=== PATIENT | male | born 1955 | race Caucasian/White ===

== ENCOUNTER 2022-11-02 11:42 | Outpatient (CLI) | payer MEDICARE, SELFPAY ==
[2022-11-02 12:48] LABS: Alanine Aminotransferase 19 U/L (16-63); Albumin Level 3.5 g/dL (3.4-5.0); Alkaline Phosphatase 72 U/L (46-116); Anion Gap 7 mmol/L (8-16); Aspartate Amino Transferase 17 U/L (15-37); Bilirubin,Total 0.6 mg/dL (0.00-1.00); Blood Urea Nitrogen 13 mg/dL (7-18); Calcium 8.6 mg/dL (8.5-10.1); Carbon Dioxide 31 mmol/L (21-32); Chloride 106 mmol/L (98-108); Estimated Glomerular Filt Rate > 60; Glucose 108 mg/dL (70-99); Osmolality Calculated 299 mOsm/kg (285-295); Potassium 4.1 mmol/L (3.5-5.1); Prostate Specific Antigen 5.6 ng/mL (< OR = 4.0); Sodium 144 mmol/L (136-145); Total Protein 6.5 g/dL (6.4-8.2)
== END 2022-11-02 11:43 | disposition home or self-care (01) ==
PROVIDERS: PCP Internal Medicine; Visit Provider Urology
DX: N42.9 Disorder of prostate, unspecified (principal)
CPT/HCPCS: 36415; 80053; 84153

== ENCOUNTER 2023-02-24 12:14 | Outpatient (CLI) | payer MEDICARE, SELFPAY ==
--- NOTE | ~2023-02-24 | XR_ITS ---
EXAMINATION: XR chest 2V 02/24/2023 12:36 INDICATION: Dyspnea for one year PROCEDURE: 2 view chest COMPARISON: No prior studies for comparison. FINDINGS: The lungs are clear. The cardiomediastinal silhouette is within normal limits. There are no pleural effusions. There is no pneumothorax suspected. IMPRESSION: 1: NO ACUTE CARDIOPULMONARY DISEASE. Reviewed, dictated and finalized at location L.
[2023-02-24 12:29] LABS: Basophils Absolute Auto 0.03 K/mm3 (0.00-0.10); Basophils Percent Auto 0.4 % (0.0-1.0); Eosinophils Absolute Auto 0.18 K/mm3 (0.02-0.50); Eosinophils Percent Auto 2.2 % (1.0-6.0); Hematocrit 44.6 % (37.0-46.0); Hemoglobin 14.6 g/dL (12.4-15.3); Immature Granulocyte Absolute 0.03 K/mm3 (0.00-0.00); Immature Granulocyte Percent A 0.4 % (0.0-0.0); Lymphocytes Absolute Auto 1.76 K/mm3 (1.10-4.50); Mean Corpuscular HGB Conc 32.7 g/dL (32.0-36.0); Mean Corpuscular Hemoglobin 29.6 pg (27.0-31.0); Mean Corpuscular Volume 90.3 fL (78.0-102.0); Mean Platelet Volume 9.1 fl (8.7-11.0); Monocytes Absolute Auto 0.91 K/mm3 (0.10-0.90); Monocytes Percent Auto 10.9 % (2.0-11.0); Neutrophils Absolute Auto 5.5 K/mm3 (1.7-7.2); Neutrophils Percent Auto 65.1 % (50.0-70.0); Platelet Count Result 264 K/mm3 (150-420); Red Blood Count 4.94 M/mm3 (4.70-6.10); Red Cell Distribution Width 12.8 % (11.6-14.4); White Blood Count 8.4 K/mm3 (4.8-10.8)
--- NOTE | 2023-02-24 12:31 | ECG_ITS ---
Measurements Intervals [employer] Rate: 78 P: 75 UT: 177 QRS: 79 QRSD: 97 T: 71 QT: 374 QTc: 429 Interpretive Statements SINUS RHYTHM WITH SINUS ARRHYTHMIA INCOMPLETE RIGHT BUNDLE BRANCH BLOCK DELAYED PRECORDIAL R/S TRANSITION BASELINE ARTIFACT- II, III, AVR, AVL, AVF BORDERLINE ECG NO PREVIOUS ECG AVAILABLE FOR COMPARISON Electronically Signed On 02-24-2023 13:25:47 CDT by Ernesto Zayas D.O.
[2023-02-24 13:07] LABS: Alanine Aminotransferase 22 U/L (16-63); Albumin Level 3.9 g/dL (3.4-5.0); Alkaline Phosphatase 82 U/L (46-116); Anion Gap 7 mmol/L (8-16); Aspartate Amino Transferase 17 U/L (15-37); Bilirubin,Total 0.8 mg/dL (0.00-1.00); Blood Urea Nitrogen 13 mg/dL (7-18); Calcium 9.4 mg/dL (8.5-10.1); Carbon Dioxide 33 mmol/L (21-32); Chloride 99 mmol/L (98-108); Estimated Glomerular Filt Rate > 60; Glucose 84 mg/dL (70-99); NT Pro B Type Natriuretic Pept 38 pg/mL (0-125); Osmolality Calculated 287 mOsm/kg (285-295); Potassium 4.3 mmol/L (3.5-5.1); Sodium 139 mmol/L (136-145); Thyroid Stimulating Hormone 4.34 uIU/mL (0.36-3.74); Total Protein 7.7 g/dL (6.4-8.2)
== END 2023-02-24 12:15 | disposition home or self-care (01) ==
LOC: CHSIMG 12:16
PROVIDERS: PCP Internal Medicine; Visit Provider Internal Medicine
DX: R06.00 Dyspnea, unspecified (principal); E03.9 Hypothyroidism, unspecified; I45.19 Other right bundle-branch block
CPT/HCPCS: 36415; 71046; 80053; 83880; 84443; 85025; 93005

== ENCOUNTER 2023-03-11 12:39 | Outpatient (CLI) | payer MEDICARE, SELFPAY ==
--- NOTE | 2023-03-11 12:47 | ECHO_ITS ---
Patient Info Name: Chencho Naranjo Age: 67 years : 1955 Gender: Male Ht: 71 in Wt: 204 lbs BSA: 2.17 m2 HR: 70 bpm BP: 130 / 75 mmHg Heart Rhythm: Sinus Rhythm Technical Quality: Fair Exam Date: 03/11/2023 1:24 PM Exam Location: [facility] Patient Status: Outpatient Admit Date: 03/11/2023 Staff Ordering Physician: Franko Hand MD Field Operations Manager: Kayla Rouse RDCS Attending Provider: Franko Hand MD Exam Type: CA echo doppler color flow Study Info Indications R94.31 - Abnormal electrocardiogram ECG EKG Complete two-dimensional, color flow and Doppler transthoracic echocardiogram is performed. Summary 1. Complete two-dimensional, color flow and Doppler transthoracic echocardiogram is performed. 2. Left ventricular chamber dimension is normal. 3. Left ventricular systolic function is normal, estimated at 60-65%. 4. The left ventricular diastolic function is normal. 5. There is trace tricuspid valve regurgitation. 6. No pulmonary hypertension, estimated pulmonary arterial systolic pressure is 20 mmHg. Left Ventricle Tissue doppler E/e' is not performed. Left ventricular chamber dimension is normal. Left ventricular systolic function is normal, estimated at 60-65%. The left ventricular diastolic function is normal. Right Ventricle Right ventricular systolic function is normal and with normal TAPSE 2.9 cm. Right ventricular chamber dimension is normal. Left Atria Left atrial chamber dimension is normal. Right Atria Right atrial chamber dimension is normal. Aortic Valve The aortic valve is trileaflet. There is no aortic valve stenosis. There is no aortic valve regurgitation. Pulmonic Valve There is no pulmonic regurgitation. Mitral Valve There is no mitral valve stenosis. There is no mitral valve regurgitation. Tricuspid Valve There is trace tricuspid valve regurgitation. No pulmonary hypertension, estimated pulmonary arterial systolic pressure is 20 mmHg. Pericardium/Pleural There is no pericardial effusion. Inferior Vena Cava Normal inferior vena cava with >50% collapse upon inspiration consistent with normal right atrial pressure, 5 mmHg. Aorta The aortic root size at the sinus of Valsalva is normal. Left Ventricular Outflow Tract Name Value Normal LVOT 2D LVOT Diameter 2.2 cm LVOT Doppler LVOT Peak Velocity 86 cm/s LVOT Peak Gradient 3 mmHg LVOT Mean Gradient 1 mmHg LVOT VTI 17 cm LVOT VTI/AV VTI Ratio 0.7 LVOT Stroke Volume 62 ml Pulmonic Valve Name Value Normal RVOT Doppler RVOT Peak Gradient 1 mmHg PV Doppler PV Peak Velocity 90 cm/s PV Peak Gradient 3 mmHg Mitral Valve
== END 2023-03-11 12:40 | disposition home or self-care (01) ==
LOC: CHSIMG 12:41
PROVIDERS: PCP Internal Medicine; Visit Provider Internal Medicine
DX: R94.31 Abnormal electrocardiogram [ECG] [EKG] (principal)
CPT/HCPCS: 93306

== ENCOUNTER 2023-03-18 09:15 | Outpatient (CLI) | payer MEDICARE, SELFPAY | END 2023-03-18 09:16 | disposition home or self-care (01) | LOC: CHSCARD 09:17 | PROVIDERS: PCP Internal Medicine; Visit Provider Internal Medicine | DX: R06.00 Dyspnea, unspecified (principal); E03.9 Hypothyroidism, unspecified | CPT/HCPCS: 94060; 94726; 94729 ==

== ENCOUNTER 2023-03-29 10:12 | Outpatient (CLI) | payer MEDICARE, SELFPAY ==
[2023-03-29 11:20] LABS: Alanine Aminotransferase 23 U/L (16-63); Albumin Level 3.9 g/dL (3.4-5.0); Alkaline Phosphatase 79 U/L (46-116); Anion Gap 9 mmol/L (8-16); Aspartate Amino Transferase 18 U/L (15-37); Bilirubin,Total 0.7 mg/dL (0.00-1.00); Blood Urea Nitrogen 14 mg/dL (7-18); Calcium 9.4 mg/dL (8.5-10.1); Carbon Dioxide 30 mmol/L (21-32); Chloride 100 mmol/L (98-108); Estimated Glomerular Filt Rate > 60; Glucose 97 mg/dL (70-99); Osmolality Calculated 288 mOsm/kg (285-295); Potassium 4.1 mmol/L (3.5-5.1); Prostate Specific Antigen 3.3 ng/mL (< OR = 4.0); Sodium 139 mmol/L (136-145); Total Protein 7.4 g/dL (6.4-8.2)
== END 2023-03-29 10:13 | disposition home or self-care (01) ==
LOC: CHSLAB 10:15
PROVIDERS: PCP Internal Medicine; Visit Provider Urology
DX: N42.9 Disorder of prostate, unspecified (principal)
CPT/HCPCS: 36415; 80053; 84153

== ENCOUNTER 2023-09-21 10:53 | Outpatient (CLI) | payer MEDICARE, SELFPAY ==
[2023-09-21 12:07] LABS: Alanine Aminotransferase 29 U/L (16-63); Albumin Level 3.8 g/dL (3.4-5.0); Alkaline Phosphatase 71 U/L (46-116); Anion Gap 4 mmol/L (8-16); Aspartate Amino Transferase 20 U/L (15-37); Bilirubin,Total 0.6 mg/dL (0.00-1.00); Blood Urea Nitrogen 12 mg/dL (7-18); Calcium 9.1 mg/dL (8.5-10.1); Carbon Dioxide 32 mmol/L (21-32); Chloride 103 mmol/L (98-108); Estimated Glomerular Filt Rate > 60; Glucose 88 mg/dL (70-99); Osmolality Calculated 286 mOsm/kg (285-295); Prostate Specific Antigen 4.1 ng/mL (< OR = 4.0); Sodium 139 mmol/L (136-145); Total Protein 7.1 g/dL (6.4-8.2)
== END 2023-09-21 10:54 | disposition home or self-care (01) ==
LOC: CHSLAB 11:02
PROVIDERS: PCP Internal Medicine; Visit Provider Urology
DX: N42.9 Disorder of prostate, unspecified (principal); N40.1 Benign prostatic hyperplasia with lower urinary tract symptoms
CPT/HCPCS: 36415; 80053; 84153

== ENCOUNTER 2024-05-02 14:16 | Outpatient (CLI) | payer MEDICARE, SELFPAY ==
[2024-05-02 15:32] LABS: Alanine Aminotransferase 20 U/L (16-63); Albumin Level 3.5 g/dL (3.4-5.0); Alkaline Phosphatase 71 U/L (46-116); Anion Gap 5 mmol/L (4-12); Aspartate Amino Transferase 60 U/L (15-37); Bilirubin,Total 0.6 mg/dL (0.00-1.00); Blood Urea Nitrogen 13 mg/dL (7-18); Calcium 8.8 mg/dL (8.5-10.1); Carbon Dioxide 33 mmol/L (21-32); Chloride 102 mmol/L (98-108); Estimated Glomerular Filt Rate > 60; Glucose 99 mg/dL (70-99); Osmolality Calculated 290 mOsm/kg (285-295); Potassium 3.1 mmol/L (3.5-5.1); Sodium 140 mmol/L (136-145)
[2024-05-02 15:57] LABS: Prostate Specific Antigen < 0.1 ng/mL (< OR = 4.0)
== END 2024-05-02 14:17 | disposition home or self-care (01) ==
PROVIDERS: PCP Internal Medicine; Visit Provider Urology
DX: N42.9 Disorder of prostate, unspecified (principal); N40.1 Benign prostatic hyperplasia with lower urinary tract symptoms; Z12.5 Encounter for screening for malignant neoplasm of prostate
CPT/HCPCS: 36415; 80053; 84153; G0103

== ENCOUNTER 2024-06-08 09:32 | Outpatient (CLI) | payer MEDICARE, SELFPAY ==
--- NOTE | ~2024-06-08 | CT_ITS ---
CT Scan of the Chest without Contrast: Clinical Indication: Lung cancer screening, nicotine dependence Technique: Contiguous sections were acquired throughout the chest without intravenous contrast. Dose reduction technique was used on this scan by utilizing automated exposure control and iterative recon struction technique. The dose-length product (DLP) was 235.63 mGy-cm. Findings: There is no evidence of any significant mediastinal, hilar or axillary lymphadenopathy. The mediastin al soft tissues appear normal. There is no evidence of pleural or pericardial effusion. 3 mm right lower lobe pulmonary nodule present. There is left basilar scarring. Images through the upper abdomen reveal no abnormalities. Impression: Lung RADS 2: Benign appearance. 12 month follow-up screening CT advised. Reviewed, dictated and finalized at location . Impression: Lung RADS 2: Benign appearance. 12 month follow-up screening CT advised.
== END 2024-06-08 09:33 | disposition home or self-care (01) ==
PROVIDERS: PCP Internal Medicine; Visit Provider Internal Medicine
DX: J44.9 Chronic obstructive pulmonary disease, unspecified (principal); Z12.2 Encounter for screening for malignant neoplasm of respiratory organs; Z87.891 Personal history of nicotine dependence
CPT/HCPCS: 71271; 94060; 94726; 94729

== ENCOUNTER 2024-10-18 09:19 | Outpatient (CLI) | payer MEDICARE, SELFPAY ==
[2024-10-18 09:46] LABS: Hematocrit 43.4 % (37.0-46.0); Hemoglobin 14.3 g/dL (12.4-15.3); Mean Corpuscular HGB Conc 32.9 g/dL (32-36); Mean Corpuscular Hemoglobin 28.9 pg (27.0-31.0); Mean Corpuscular Volume 87.7 fL (78.0-102.0); Mean Platelet Volume 9.5 fl (8.7-11.0); Platelet Count Result 241 K/mm3 (150-420); Red Blood Count 4.95 M/mm3 (4.70-6.10); Red Cell Distribution Width 13.4 % (11.6-14.4); White Blood Count 8.8 K/mm3 (4.8-10.8)
[2024-10-18 09:55] LABS: Add Urine Microscopic? NO; Appearance Urine Clear (Clear); Bilirubin Urine Negative (Negative); Blood Urine Negative (Negative); Color Urine Light Yellow (Yellow); Glucose Urine UA Negative (Negative); Ketones Urine Negative (Negative); Leukocyte Esterase Ur Negative (Negative); Nitrate Urine Negative (Negative); Protein Urine Negative (Negative); Urobilinogen Urine 0.2 mg/dL (0.2-1.0); pH Urine 5.5 (5.0-8.0)
[2024-10-18 10:26] LABS: Alanine Aminotransferase 31 U/L (16-63); Albumin Level 3.7 g/dL (3.4-5.0); Alkaline Phosphatase 93 U/L (46-116); Anion Gap 7 mmol/L (4-12); Aspartate Amino Transferase 15 U/L (15-37); Bilirubin,Total 0.7 mg/dL (0.00-1.00); Blood Urea Nitrogen 9 mg/dL (7-18); CRP 0.7 mg/dL (0.0-0.9); Calcium 9.1 mg/dL (8.5-10.1); Carbon Dioxide 28 mmol/L (21-32); Chloride 106 mmol/L (98-108); Cholesterol 168 mg/dL (0-200); Estimated Glomerular Filt Rate > 60; Glucose 107 mg/dL (70-99); HDL Direct 48 mg/dL (40-60); LDL Cholesterol Calculated 99 mg/dL (<130); Osmolality Calculated 290 mOsm/kg (285-295); Potassium 4.4 mmol/L (3.5-5.1); Prostate Specific Antigen 2.2 ng/mL (< OR = 4.0); Sodium 141 mmol/L (136-145); Thyroid Stimulating Hormone 2.34 uIU/mL (0.36-3.74); Total Protein 6.7 g/dL (6.4-8.2); Triglycerides 107 mg/dL (0-150)
== END 2024-10-18 09:20 | disposition home or self-care (01) ==
LOC: CHSLAB 09:21
PROVIDERS: PCP Internal Medicine; Visit Provider Internal Medicine
DX: I10 Essential (primary) hypertension (principal); E78.5 Hyperlipidemia, unspecified; J44.9 Chronic obstructive pulmonary disease, unspecified; R97.20 Elevated prostate specific antigen [PSA]
CPT/HCPCS: 36415; 80053; 80061; 81003; 84153; 84443; 85027; 86140

== ENCOUNTER 2024-10-31 10:57 | Outpatient (CLI) | payer MEDICARE, SELFPAY ==
[2024-10-31 11:59] LABS: Alanine Aminotransferase 33 U/L (16-63); Alkaline Phosphatase 97 U/L (46-116); Anion Gap 9 mmol/L (4-12); Aspartate Amino Transferase 21 U/L (15-37); Bilirubin,Total 0.8 mg/dL (0.00-1.00); Blood Urea Nitrogen 11 mg/dL (7-18); Calcium 9.3 mg/dL (8.5-10.1); Carbon Dioxide 30 mmol/L (21-32); Chloride 105 mmol/L (98-108); Estimated Glomerular Filt Rate > 60; Glucose 98 mg/dL (70-99); Osmolality Calculated 297 mOsm/kg (285-295); Potassium 4.1 mmol/L (3.5-5.1); Prostate Specific Antigen 2.1 ng/mL (< OR = 4.0); Sodium 144 mmol/L (136-145); Total Protein 6.9 g/dL (6.4-8.2)
--- OUTSIDE RECORDS SUMMARY | 2024-11-01 23:44 | XMS_ITS | Encounter Summary ---
Author Organization [facility] Address [address] [place] [address] Phone Care Team Providers Care Research And Development Tester Name Role Phone Serge Martinez MD Primary Care Provider [phone] Janett Mccormick APN, [facility] Unavailable Bernie Downey MD Unavailable Ranjit Yadav MD Unavailable [phone] Reason for Visit * Reason Comments Medication Refill Encounter Details Date Type Department Care Team (Late st Contact Info) Description 10/06/2022 Refill [facility] [address] [place] [id number] Nino Martin MD [address] [address] Medication Refill Social History Tobacco Use Types Packs/Day Years Used Date Smoking Tobacco: Former Cigarettes 1 48 1 11/12/1970 - 01/12/2019 Smokeless Tobacco: Current Chew Alcohol Use Standard Drinks/Week Comments Not Currently 0 (1 standard drink = 0.6 oz pur e alcohol) PHQ-2 Answer Date Recorded Total Score - Questions 1-9 0 03/0 05/2022 Sexually Active Control Partners Comments Not Currently Sex and Gender Information Value Date Recorded Sex Assigned at Not on file Legal Sex Male 11:37 PM CDT Gender Identity Not on file Sexual Orientation Not on file 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 RIPTIVE CATALOG LIBRARIAN documented in this encounter Plan of Treatment Not on file documented as of this encounter Visit Diagnoses Not on filedocumented in this encounter Additional Health Concerns Assessment Noted Time PHQ-9 Depression Total Score: 0 11/25/19 21 9:00 AM DESCRIPTIVE CATALOG LIBRARIAN documented as of this encounter Care Teams Research And Development Tester Relationship Specialty Start Date End Date Serge Martinez MD [address] [address] PCP - General Internal Medicine 09/12/15 02/14/23 Janett Mccormick, NON LINEAR EDITOR, DIMENSION WAREHOUSE SUPERVISOR [address] [place] [address] Nurse Practitioner Urology 05/14/16 Bernie Downey MD [address] [place] [address] Consulting Physician Urology 10/13/17 Ranjit Yadav MD [address] [place] [address] Consulting Physician Rheumatology 12/06/17 documented as of this encounter
--- OUTSIDE RECORDS SUMMARY | 2024-11-01 23:44 | XMS_ITS | Referral Summary ---
Author Organization [facility] Address [address] [place] [address] Care Team Providers Care Face Worker Name Role Phone Serge Martinez MD Primary Care Provider + Allergies No known active allergies Medications albuterol HFA (PROVENTIL HFA,VENTOLIN HFA) 90 mcg/actuation inhaler Inhale. Active tamsulosin (FLOMAX) 0.4 mg extended release capsule Take 0.4 mg by mouth nightly. 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 Aftercare following surgery 01/17/2018 Resolved Problems Problem Noted Date Diagnosed Date Resolved Date Carpal tunnel syndrome on right 12/15/2017 01/17/2018 Overview (12/15/2017): Added automatically from request for surgery [id number] Carpal tunnel syndrome, right 12/13/2017 01/17/2018 Immunizations Name Administration Dates Next Due Influenza, Quadrivalent, Spl it, Preservative Free, Intramuscular 06/27/2019 Influenza, Trivalent, Cell C ulture-based MDCK, Preservative Free, Antibiotic Free, Intramuscular 07/20/2020 Influenza, Trivalent, IM (MDV) 07/13/2017 Pfizer SARS-CoV-2 Monovalent Vaccination (12+ Yrs) PURPLE 02/24/2021 Pneumococcal Polysaccharide PPV23 12/06/2017 Tdap 08/08/2015,12/03/2014 ZOSTER Recombinant 10/08/2020,08/04/2020 Social History Tobacco Use Types Packs/Day Years Used Date Smoking Tobacco: Every Day Cigarettes 0.5 18 Smokeless Tobacco: Current Tobacco Cessation:Ready to Q uit: Yes; Counseling Given: Yes Alcohol Use Standard Drinks/Week Comments No 0 (1 standard drink = 0.6 oz pur e alcohol) Sex and Gender Information Value Date Recorded Sex Assigned at Not on file 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 Gender Identity Not on file Sexual Orientation Not on file Last Filed Vital Signs Vital Sign Reading Time Taken Comments Blood Pressure 142/60 03/26/2021 3:24 PM CDT Pulse 76 03/26/2021 3:24 PM CDT Temperature 36.7 ??C (98.1 ??F) 03/26/2021 3:24 PM CD T Respiratory Rate 16 03/26/2021 3:24 PM CDT Oxygen Saturation 98% 03/26/2021 3:24 PM CDT Inhaled Oxygen Concentration - - Weight 86.4 kg (190 lb 8 oz) 03/26/2021 8:03 AM CDT Height 180.3 cm (5' 11 ) 03/26/2021 8:03 AM CDT Body Mass Index 26.57 03/26/2021 8:03 AM CDT Plan of Treatment Not on file Insurance [facility] CHOICE PLUS MEDICARE MEDICARE [facility] CHOICE PLUS MEDICARE SOLUTIONS [facility] CHOICE PLUS TRANSPLANT [employer] [facility] Care Teams Face Worker Relationship Specialty Start Date End Date Serge Martinez MD PCP - General Internal Medicine 12/09/17
--- OUTSIDE RECORDS SUMMARY | 2024-11-01 23:44 | XMS_ITS | Clinical Summary ---
Author Organization [facility] Medical Office Building [facility] Address [address] [place] [address] Care Team Providers Care Rubber Tubing Splicer Name Role Phone Serge Martinez MD Primary [...] (12/15/2017): Added automatically from request for surgery [id number] Carpal tunnel syndrome, right 12/13/2017 01/17/2018 Immunizations Name Administration Dates Next Due Influenza, Quadrivalent, Spl it, Preservative Free, Intramuscular 06/27/2019 Influenza, Trivalent, Cell C ulture-based MDCK, Preservative Free, Antibiotic Free, Intramuscular 07/20/2020 Influenza, Trivalent, IM (MDV) 07/13/2017 Pfizer SARS-CoV-2 Monovalent Vaccination (12+ Yrs) PURPLE 02/24/2021 Pneumococcal Polysaccharide PPV23 12/06/2017 Tdap 08/08/2015,12/03/2014 ZOSTER Recombinant 10/08/2020,08/04/2020 Surgical History Surgery Date Site/Laterality Comments SPINE SURGERY Ruptured Disc Repair TONSILLECTOMY AND ADENOIDECTOMY Medical History Medical History Date Comments Hypertension Rheumatoid arthritis (HCC) Cancer (CMS/HCC) (HCC) Prostate Family History Medical History Relation Name Comments Heart disease Other Relation Name Status Comments Other Social History Tobacco Use Types Packs/Day Years Used Date Smoking Tobacco: Every Day Cigarettes 0.5 18 Smokeless Tobacco: Current Tobacco Cessation:Ready to Q uit: Yes; Counseling Given: Yes Alcohol Use Standard Drinks/Week Comments No 0 (1 standard drink = 0.6 oz pur e alcohol) Sex and Gender Information Value Date Recorded Sex Assigned at Not on file 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 Gender Identity Not on file Sexual Orientation Not on file Obstetrics History Last Filed Vital Signs Vital Sign Reading [...] 03/26/2021 8:03 AM CDT Plan of Treatment Health Maintenance Due Date Last Done Comments Colon Cancer Screening-Colonoscopy 1955 Depression Screening 1955 Hepatitis C Screening 1955 Prostate Cancer Screening-PSA 1955 Hepatitis B Screening 1973 Pneumococcal vaccine 65+ (2 of 2 - PCV) 12/06/2018 12/06/2017 Abdominal Aortic Aneurysm (A AA) Screen 2020 Well Visit 65+ 2020 Fall Risk Assessment 03/22/2022 03/22/2021 Covid-19 Vaccine (2023-2 5 season) 2024 10/23/2021, 03/17/2021, 02/24/2021 Influenza Vaccine (#1) 2024 , 07/20/2020, 06/27/2019, Additional history exists DTaP/Tdap/Td Vaccine (3 - Td or Tdap) 08/08/2025 08/08/2015, 12/03/2014 Zoster Vaccine Completed 10/08/2020, 08/04/2020 Insurance [facility] CHOICE PLUS MEDICARE MEDICARE [facility] CHOICE PLUS MEDICARE SOLUTIONS [facility] CHOICE PLUS TRANSPLANT [facility] Care Teams Rubber Tubing Splicer Relationship Specialty Start Date End Date Serge Martinez MD PCP - General Internal Medicine 12/09/17
--- OUTSIDE RECORDS SUMMARY | 2024-11-01 23:44 | XMS_ITS | Clinical Summary ---
Author Organization [facility] Address [address] [place] [address] Phone Care Team Providers Care Garden Implement Mechanic Name Role Phone Unavailable Primary Care Provider Unavailabl e Allergies No known active allergies Medications tamsulosin (FLOMAX) 0.4 mg capsule 05/05/2021 Active lisinopril-hydro CHLOROthiazide (ZESTORETIC) 20-25 mg tablet 06/17/2021 Act ace finasteride (PROSCAR) 5 mg tabletIndication s:Benign prostatic hyperplasia with nocturia TAKE 1 TABLET BY MOUTH EVERY DAY 30 Tablet 3 08/04/2022 Active Active Problems Problem Noted Date Diagnosed Date Elevated PSA 07/14/2021 Social History Tobacco Use Types Packs/Day Years Used Date Smoking Tobacco: Never Smokeless Tobacco: Never Tobacco Cessation:Counseling Given: No Sex and Gender Information Value Date Recorded Sex Assigned at Not on file Legal Sex Male 2:50 PM CDT Gender Identity Not on file Sexual Orientation Not on file Last Filed Vital Signs Vital Sign Reading Time Taken Comments Blood Pressure - - Pulse - - Temperature 36.7 ??C (98 ??F) 07/14/2021 9:16 AM CDT Respiratory Rate 17 08/06/2022 10:37 AM CDT Oxygen Saturation - - Inhaled Oxygen Concentration - - Weight 90.7 kg (200 lb) 08/06/2022 10:37 AM CDT Height 182.9 cm (6') 08/06/2022 10:37 AM CDT Body Mass Index 27.12 08/06/2022 10:37 AM CDT Plan of Treatment Health Maintenance Due Date Last Done Comments COLORECTAL SCREENING 2000 Colorectal Cancer Screening 2000 FIT-DNA Q 3 years 2000 FIT/FOBT Q 1 year 2000 Flex Sig/CT Colonography Q 5 years 2000 RSV VACCINE (60+ or ) (1 - Risk 60-74 years 1-dose series) 2015 PNEUMOCOCCAL VACCINE 65+ YEA RS (2 of 2 - PCV) 12/06/2018 12/06/2017 INFLUENZA VACCINE (#1) 2024 1, 07/20/2020, 07/20/2020, Additional history exists COVID-19 Vaccine (2 - 2023-2 5 season) 2024 02/24/2021 DTAP/TDAP/TD VACCINES (3 - T d or Tdap) 08/08/2025 08/08/2015, 12/03/2014 ZOSTER VACCINE Completed 10/08/2020, 08/04/2020 Insurance [place] [address]
--- OUTSIDE RECORDS SUMMARY | 2024-11-01 23:44 | XMS_ITS | Clinical Summary ---
Author Organization [facility] Address [address] [place] [address] Care Team Providers Care Piece Dyeing Machine Tender Name Role Phone Serge Martinez MD Primary Care Provider [phone] Serge Martinez MD Unavailable [phone] Source Comments [facility],non-owned Affiliates and Associated Physician Practices is amultiple site organization consisting of ambulatory clinics and hospital sitesin [place], [place] and [place]. This disclosure is being madepursuant to the Care Everywhere program and may not contain all information available regarding this patient. Last updated 18.[facility] Allergies No known active allergies Medications * Be aware that medications may not be up to date on this document. Alwaysverify current medications with the patient. Medication Sig Dispensed Refills Start Date End Date Status FINASTERIDE PO Active TAMSULOSIN HCL PO Active folic acid (FOLVITE) 1 MG tablet 11/02/2017 Active predniSONE (DELTASONE) 2.5 MG tablet Take 7.5 mg by mouth 05/16/2018 Active methotrexate 2.5 MG tablet Take 20 mg by mouth 11/02/2017 Active leflunomide (ARAVA) 10 MG tablet 05/16/2018 Active lisinopril-hydroCHLO ROthiazide (PRINZIDE; ZESTORETIC) 20-25 MG tablet 12/05/2017 Active albuterol HFA (PROVENTIL;VENTOLIN; PROAIR) 108 (90 BASE) MCG/ACT inhalerIndications:A cute bronchitis, unspecified organism Inhale 2 puffs by mouth every 4 hours as needed for Shortness of Breath, Wheezing or Cough 1 Inhaler 10/27/2018 Active benzonatate (TESSALON) 100 MG capsuleIndications:A cute bronchitis, unspecified organism Take 1 capsule by mouth 3 times daily as needed for Cough 15 capsule 10/27/2018 Active predniSONE (DELTASONE) 20 MG tabletIndications:Ac ute mountain sinusitis, recurrence not specified, unspecified location Take 1 tablet by mouth 2 times daily 14 tablet 03/20/2019 Active albuterol HFA (VENTOLIN HFA) 108 (90 Base) MCG/ACT inhalerIndications:A cute bronchitis, unspecified organism Inhale 2 puffs by mouth every 6 hours as needed 1 Inhaler 1 03/20/2019 Active Active Problems Problem Noted Date Diagnosed Date Hyperlipidemia 03/20/2019 Peyronie disease 11/19/2016 RA (rheumatoid arthritis) 10/10/2016 Prostate cancer 09/29/2016 Enlarged prostate 09/29/2016 Hyperplasia of prostate with lower urinary tract symptoms (LUTS) 05/14/2016 Social History Tobacco Use Types Packs/Day Years Used Date Smoking Tobacco: Former Cigarettes Smokeless Tobacco: Never Tobacco Cessation:Ready to Q uit: No; Counseling Given: Yes Sex and Gender Information Value Date Recorded Sex Assigned at Not on file Gender Identity Not on file Sexual Orientation Not on file Last Filed Vital Signs Vital Sign Reading Time Taken Comments Blood Pressure 126/80 03/20/2019 8:59 AM CDT Pulse 85 03/20/2019 8:59 AM CDT Temperature 36.7 ??C (98.1 ??F) 03/20/2019 8:59 AM CD T Respiratory Rate 17 03/20/2019 8:59 AM CDT Oxygen Saturation 93% 03/20/2019 8:59 AM CDT Inhaled Oxygen Concentration - - Weight 90.7 kg (200 lb) 03/20/2019 8:59 AM CDT Height 180.3 cm (5' 11 ) 03/20/2019 8:59 AM CDT Body Mass Index 27.89 03/20/2019 8:59 AM CDT Plan of Treatment Health Maintenance Due Date Last Done Comments COLOGUARD (AGES 45-75) - COL ON CA SCREENING 1955 COLON MONITORING 1955 COLONOSCOPY - COLON CA SCREENING 1955 CT COLONOGRAPHY - COLON CA SCREENING 1955 Colorectal Cancer Screening 1955 FIT - COLON CA SCREENING 1955 FLEX SIG - COLON CA SCREENING 1955 LIPID TESTING 1955 MEDICARE AWV ? 12 MONTHS 1955 HEPATITIS C SCREENING 10/30/1973 DTAP/TDAP/TD VACCINES (1 - Tdap) 1974 PNEUMOCOCCAL VACCINE 50+ (1 of 1 - PCV) 2005 ZOSTER VACCINE (1 of 2) 2005 SCREENING FOR DIABETES 10/27/2018 AAA SCREENING 2020 COVID-19 VACCINE (1 - 2023-2 5 season) 2024 INFLUENZA VACCINE (#1) 2024 , 07/13/2017 DEPRESSION SCREENING 10/10/2024 Respiratory Syncytial Virus (RSV) Vaccine Pt: or over 60 yrs (1 - 1-dose 75+ series) 2030 HEPATITIS B VACCINE Aged Out No longe r eligible based on patient's age to complete this topic HIB VACCINE Aged Out No longer eligi ble based on patient's age to complete this topic HPV VACCINE Aged Out No longer eligi ble based on patient's age to complete this topic MENINGOCOCCAL (Group B) VACCINE Aged Out No longer eligible b ased on patient's age to complete this topic MENINGOCOCCAL VACCINE Aged Out No julieta jacob eligible based on patient's age to complete this topic Care Teams Piece Dyeing Machine Tender Relationship Specialty Start Date End Date Serge Martinez MD PCP - General 05/24/18 Serge Martinez MD Internal Medicine 05/24/18
--- OUTSIDE RECORDS SUMMARY | 2024-11-01 23:44 | XMS_ITS | Data Portability ---
Author Organization [facility], Main Office Address [address] [place] [address] Assessment Encounter Date Assessment Date Assessment LastModified by Organization Details LastModified Time 10/08/2024 10/08/2024 I performed this visit using real time two way telehealth tools, including Doximity video visits between my location and the patient's home. Prior to initiating the services, I obtained the patient's informed verbal consent to perform this visit using the telehealth tools and answered all the patient's questions. 68yo male presents via TM for wgt loss management [email or web address] Not available 10/08/2024 16:41:20 Plan of Treatment Reminders Order Date Submit Date Provider Last Modified By Organization Details Last Modified Time Details Appointments None recorded. Lab None recorded. Referral nutritioni st/dietiti an referral 2023 024 [email or web address] Not available 23:46:28 Procedures None recorded. Surgeries None recorded. Imaging None recorded. Medication Orders None recorded. Patient TargetsNo targets recorded. Patient InstructionsNo instructions recorded. Reason for Referral Plumber And Tinner/dietitian Refer ral for Failure to lose weight Referring Physician: Billy Tobin Nurse Practitioner- Tin Assorter, [phone] Encounter Date: 10/08/2024 Medical Equipment None Reported. Medications Name Sig Start Date Stop Date Status Note LastModified by Organization Details LastModified Time verapamil ER (SR) 120 mg tablet,extended release active Not Available Not Available Not Available sulfasalazine 500 mg tablet active Not Available Not Availabl e Not Available verapamil ER (SR) 180 mg tablet,extended release active Not Available Not Available Not Available folic acid 1 mg tablet active Not Available Not Available Not Available albuterol sulfate HFA 90 mcg/actuation aerosol inhaler active Not Available Not Availa ble Not Available losartan 50 mg-hydrochlorot hiazide 12.5 mg tablet active Not Available Not Available Not Available finasteride 5 mg tablet active Not Available Not Available No t Available rosuvastatin 5 mg tablet active Not Available Not Available No t Available Eliquis 5 mg tablet active Not Available Not Available Not Available Spiriva Respimat 2.5 mcg/actuation solution for inhalation active Not Available Not Available N ot Available Trelegy Ellipta 100 mcg-62.5 mcg-25 mcg powder for inhalation active Not Available Not Available N ot Available Wixela Inhub 250 mcg-50 mcg/dose powder for inhalation active Not Available Not Availab le Not Available Vitals None Recorded Social History None recorded. Functional Status None recorded. Mental Status None recorded. Family History Nothing Reported. Medical History No medical history recorded. Past Encounters Encounter ID Performer Location Encounter Start Date Encounter Closed Date Diagnosis/Indication Diagnosis SNOMED-CT Code Diagnosis ICD10 Code Diagnosis Note [id number] Billy Tobin NP Main Office [address] [place] [address] 10/08/2024 16:40:20 10/08/2024 23:46:28 Failure to lose weight 10300585 R63.8 -pt reports unable to lose wgt-due to nature of TM cannot perform TN or VS-will refer to nutritioni st today-advi sed healthy diet and exercise-a dvised to RTC for further management Health Concerns Section Related Observation LastModified by Organization Detai ls LastModified Time None Recorded Concern Status LastModified by Organization Details LastModified Time None Recorded Advance Directives Directive None Recorded Payers Encounter Date Sequence Insurance Name Policy Number Policy Jaime Covered Member ID Jaime Member ID Guarantor Name 10/08/2024 1 [facility] [id number] Chencho Naranjo [id number] Chencho Naranjo Notes Date Note Type Note Provider Name and Address Organization Details Recorded Time 10/08/2024 text/html 68yo male presents via TM for wgt loss management pt reports unable to lose wgt. pt reports has tried low carb diet, decrease calories, wgt watchers but reports has trouble staying on diet due to cravings. Pt denies exercise. reports has tread mill and stationary bike but has not started. reports PMH of COPD which make it hard to pt to continue exercise. PMH: COPD, prostate cancer/ BPH, afib,Meds: finasteride, verapamil, eliquis, folic acid, trelegy, albuterol,PSH: TURP -benignKNDA Billy Tobin NP [address] [place], [address], [facility] 10/08/2024 23:14:21
--- OUTSIDE RECORDS SUMMARY | 2024-11-01 23:44 | XMS_ITS | Clinical Summary ---
Author Organization [facility] Address [address], [facility] [place] [address] Phone Care Team Providers Care Cloud Subject Matter Expert Name Role Phone Janett Mccormick APN, GEAR SHAPER Unavailable [phone] Bernie Downey MD Unavailable [phone] Ranjit Yadav MD Unavailable [phone] Allergies No known active allergies Medications tamsulosin (FLOMAX) 0.4 MG Capsule TAKE 2 CAPSULES BY MOUTH NIGHTLY 60 Capsule 5 2 Active finasteride (PROSCAR) 5 MG Tablet Take 5 mg by mouth daily. 2 Active lisinopril-hydroC HLOROthiazide (PRINZIDE, ZESTORETIC) 20-25 MG TabletIndications :Essential hypertension TAKE ONE TABLET BY MOUTH DAILY 90 Tablet 3 Active Active Problems Problem Noted Date Diagnosed Date Peyronie disease 11/19/2016 RA (rheumatoid arthritis) 10/10/2016 Primary prostate malignancy 05/14/2016 Hyperplasia of prostate with lower urinary tract symptoms (LUTS) 05/14/2016 Hyperlipidemia COPD (chronic obstructive pulmonary disease) Immunizations Immunization Administration Dates Next Due Influenza Vaccine greater than 3 yrs 07/13/2017 Influenza Vaccine, MDCK,quadrivalent, pres free 07/20/2020 Influenza Vaccine, Quadrivalent, PF 06/27/2019 Influenza, High-dose, Quadrivalent 07/05/2021 Pneumococcal Vaccine Adult - 23 Valent 8 TDAP Vaccine 08/08/2015,12/03/2014 Zoster Vaccine Recombinant 10/08/2020,08/04/2020 Family History Medical History Relation Name Comments Heart Attack Father Thyroid Disease Father Cancer Maternal Uncle leukemia Heart Attack Mother Hypertension Mother Cancer Paternal Aunt stomach Cancer Paternal Uncle bone Relation Name Status Comments Father Maternal Uncle Mother Paternal Aunt Paternal Uncle Social History Tobacco Use Types Packs/Day Years Used Date Smoking Tobacco: Former Cigarettes 1 48 1 11/12/1970 - 01/12/2019 Smokeless Tobacco: Current Chew Tobacco Cessation:Ready to Q uit: No; Counseling Given: No Alcohol Use Standard Drinks/Week Comments Not Currently 0 (1 standard drink = 0.6 oz pur e alcohol) PHQ-2 Answer Date Recorded Total Score - Questions 1-9 0 05/2022 Sexually Active Control Partners Comments Not Currently Sex and Gender Information Value Date Recorded Sex Assigned at Not on file Legal Sex Male 11:37 PM CDT Gender Identity Not on file Sexual Orientation Not on file 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 Not on file Not on file No t on file Last Filed Vital Signs Vital Sign Reading Time Taken Comments Blood Pressure 110/70 12/15/2021 10:53 AM WORK FROM HOME Pulse 62 12/15/2021 10:53 AM WORK FROM HOME Temperature 36.7 ??C (98 ??F) 12/15/2021 10:53 AM WORK FROM HOME Respiratory Rate 18 12/15/2021 10:53 AM WORK FROM HOME Oxygen Saturation 97% 12/15/2021 10:53 AM WORK FROM HOME Inhaled Oxygen Concentration - - Weight 91.2 kg (201 lb) 12/15/2021 10:53 AM WORK FROM HOME Height 180.3 cm (5' 11 ) 12/15/2021 10:53 AM WORK FROM HOME Body Mass Index 28.03 12/15/2021 10:53 AM WORK FROM HOME Plan of Treatment Health Maintenance Due Date Last Done Comments Hepatitis C Virus (HCV) Screening 1955 Cologuard 2005 Immunochemical Fecal Occult Blood 2005 Respiratory Syncytial Virus (RSV) Immunization (Adult) (1 - Risk 60-74 years 1-dose series) 2015 Pneumococcal Immunization (50+ years) (2 of 2 - PCV) 12/06/2018 12/06/2017 Colonoscopy 01/16/2024 01/15/2019, 10/24/2015 Colorectal Cancer Screening 01/16/2024 Influenza Immunization (#1) 06/10/202406/11, 07/20/2020, 06/27/2019, Additional history exists SARS-COV-2 Immunization ( season) 2024 10/23/2021, 03/17/2021, 02/24/2021 Td Immunization Every 10 Years (Adults With 1 Tdap) 08/08/2025 08/08/2015, 12/03/2014 01/15/2019, 10/24/2015 Pneumococcal Immunization Combined Discontinued 12/06/2017 Zoster Immunization Completed 10/08/2020, 0 PSA Discussion Discontinued 07/22/2021, 04/10, 04/06/2021, Additional history exists Lung Cancer Screening Discontinued 12/22/2021 Hepatitis B Immunization Aged Out No longer eligible based on patient's age to complete this topic Meningococcal Immunization (ACWY) Aged Out No longer eligible based on patient's age to complete this topic Rotavirus Immunization Aged Out No lo nger eligible based on patient's age to complete this topic Procedures Procedure Name Priority Date/Time Associated Diagnosis Comments CT CHEST SCREENING WO Routine 12/22/2021 12:00 AM CDT Personal history of tobacco use, presenting hazards to health PSA SCREEN 07/22/2021 12:00 AM CDT from Last 3 Months or Most Recently Relevant to Health Maintenance Results * CT CHEST SCREENING WO (12/22/2021 12:00 AM CDT) Anatomical Region Laterality Modality Chest N/A Other 12/22/2021 us Serge Martinez MD IMG CT ORDERABLES Final R esult * PSA SCREEN (07/22/2021 12:00 AM CDT) PSA (PROSTATE SPECIFIC ANTIGEN) 7.60 ng/mL SCAN Blood 07/22/2021 us Not On File Provider CHEMISTRY ORDERABLES Final Result SCAN from Last 3 Months or Most Recently Relevant to Health Maintenance Insurance MEDIC[facility] C [employer] [facility] Care Teams Cloud Subject Matter Expert Relationship Specialty Start Date End Date Janett Mccormick, RESIDENTIAL CARE FACILITY MANAGER, GEAR SHAPER Nurse Practitioner Urology 05/14/16 Bernie Downey MD Consulting Physician Urology 10/13/17 Ranjit Yadav MD [address] [address] Consulting Physician Rheumatology 12/06/17
--- OUTSIDE RECORDS SUMMARY | 2024-11-01 23:44 | XMS_ITS | Clinical Summary ---
Author Organization [facility] Address [facility] [facility] [place] [address] [place] [address] Care Team Providers Care Furnace Firer Name Role Phone Franko Hand MD Primary Care Provider [phone] Sudha Tao MD Unavailable Allergies No known active allergies Medications sulfaSALAzine (AZULFIDINE) 500 MG tablet Take 2 tablets (1,000 mg total) by mouth 2 (two) times daily. Active folic acid (FOLVITE) 1 MG tablet Take 1 tablet (1 mg total) by mouth daily. Active finasteride (PROSCAR) 5 MG tablet Take 1 tablet (5 mg total) by mouth daily. Active Fluticasone-Ume clidin-Vilant (TRELEGY ELLIPTA) 100-62.5-25 MCG/ACT AEROSOL POWDER, BREATH ACTIVATED Inhale 1 puff into the lungs daily. Active apixaban (ELIQUIS) 5 MG tablet Take 1 tablet (5 mg total) by mouth 2 (two) times daily. 180 tablet 3 05/04/2023 Active losartan-hydroC HLOROthiazide (HYZAAR) 50-12.5 MG tablet 11/18/2023 Active rosuvastatin (CRESTOR) 5 MG tablet Take 1 tablet (5 mg total) by mouth nightly at bedtime. Active Active Problems No known active problems Family History Medical History Relation Comments hypertension Brother Heart Attack Father Heart Disease Father arrhythmia, pace maker mesothelioma Father CHF Mother Heart Attack Mother Heart Disease Mother Hypertension Mother Diabetes type II Paternal Grandmother leukemia Sister 1 discoid lupus Son Relation Status Comments Brother Father Maternal Grandfather Maternal Grandmother Mother Paternal Grandfather Paternal Grandmother Sister 1 Alive Sister 2 Son Alive Social History Tobacco Use Types Packs/Day Years Used Date Smoking Tobacco: Former Cigarettes Tobacco Cessation:Counseling Given: Not Answered Alcohol Use Standard Drinks/Week Comments Not Currently 0 (1 standard drink = 0.6 oz pur e alcohol) Sex and Gender Information Value Date Recorded Sex Assigned at Not on file Legal Sex Male 10:45 AM CDT Gender Identity Not on file Sexual Orientation Not on file Last Filed Vital Signs Vital Sign Reading Time Taken Comments Blood Pressure 130/74 11/21/2023 1:54 PM SOCIAL SCIENCE RESEARCH ASSISTANT Pulse 63 11/21/2023 1:54 PM SOCIAL SCIENCE RESEARCH ASSISTANT Temperature - - Respiratory Rate 18 11/21/2023 1:54 PM SOCIAL SCIENCE RESEARCH ASSISTANT Oxygen Saturation 95% 11/21/2023 1:54 PM SOCIAL SCIENCE RESEARCH ASSISTANT Inhaled Oxygen Concentration - - Weight 100.7 kg (222 lb) 11/21/2023 1:54 PM SOCIAL SCIENCE RESEARCH ASSISTANT Height 180.3 cm (5' 11 ) 11/21/2023 1:54 PM SOCIAL SCIENCE RESEARCH ASSISTANT Body Mass Index 30.96 11/21/2023 1:54 PM SOCIAL SCIENCE RESEARCH ASSISTANT Plan of Treatment Upcoming Encounters Date Type Department Care Team (Late st Contact Info) Description 12/03/2024 11:45 AM SOCIAL SCIENCE RESEARCH ASSISTANT Office Visit [facility] [place] [address] Sudha Tao MD [address] [place] [address] Health Maintenance Due Date Last Done Comments Colorectal Cancer Screening Colonoscopy (10 Years) 1955 Hepatitis C 1973 RSV Immunization or 60+ Years (1 - Risk 60-74 years 1-dose series) 2015 Annual Medicare Wellness Visit 2020 Pneumococcal Vaccine: 65+ Years (2 of 2 - PCV) 2020 12/06/2017 COVID-19 Vaccine ( - season) 2024 03/17/2021, 02/24/2021 Influenza Adult (#1) 2024 07/05/2021, 07/20/2020, 06/27/2019, Additional history exists DTaP, Tdap and Td Vaccines (3 - Td or Tdap) 08/08/2025 08/08/2015, 12/03/2014 Zoster Vaccines Completed 10/08/2020, 08/04/2020 AAA SCREENING Completed 02/12/2022 Meningococcal Vaccine Aged Out No julieta jacob eligible based on patient's age to complete this topic RSV Immunizations Under 20 Months Aged Out No longer eligible based on patient's age to complete this topic Procedures Procedure Name Priority Date/Time Associated Diagnosis Comments USV AAA SCREENING Routine 02/12/2022 9:4 5 AM CDT Screening for cardiovascular condition from Last 3 Months or Most Recently Relevant to Health Maintenance Results * USV AAA SCREENING (02/12/2022 9:45 AM CDT) Anatomical Region Laterality Modality NA Ultrasound 02/12/2022 11:4 0 AM CDT Impressions 02/12/2022 11:50 AM CDT IMPRESSION: Negative for abdominal aortic aneurysm. Ordered By: SERGE GALLEGO Interpreted By: José Luis Philippe MD, 02/12/2022 11:40 AM Narrative 02/12/2022 11:50 AM CDT Examination: Ultrasound of the abdominal aorta. Exam time: 0913 hours. Clinical history: Screening for abdominal aortic aneurysm. Former smoker. Comparison: None. Technique: Grayscale and color Doppler images including spectral analysis. Findings: The abdominal aorta is normal in caliber throughout with normal- appearing color flow and triphasic waveforms on Doppler. The iliac bifurcation appears normal. Procedure Note José Luis Philippe MD - 02/12/2022 Examination: Ultrasound of the abdominal aorta. Exam time: 0913 hours. Clinical history: Screening for abdominal aortic aneurysm. Former smoker. Comparison: None. Technique: Grayscale and color Doppler images including spectralanalysis. Findings: The abdominal aorta is normal in caliber throughout withnormal- appearing color flow and triphasic waveforms on Doppler. The iliacbifurcation appears normal. IMPRESSION: Negative for abdominal aortic aneurysm. Ordered By: SERGE GALLEGO Interpreted By: José Luis Philippe MD, 02/12/2022 11:40 AM us Serge Gallego MD VASC Final Res ult from Last 3 Months or Most Recently Relevant to Health Maintenance Insurance [facility] Care Teams Furnace Firer Relationship Specialty Start Date End Date Franko Hand MD [address] [place] [address] PCP - General INTERNAL MEDICINE 04/29/23 Sudha Tao MD [address] [place] [address] Consulting Physician CARDIOVASCULAR DISEASE 04/29/23
--- OUTSIDE RECORDS SUMMARY | 2024-11-01 23:44 | XMS_ITS | Referral Summary ---
Author Organization [facility] Address [address] [place] [address] Care Team Providers Care Riding Silks Custodian Name Role Phone Serge Martinez MD Primary Care Provider [phone] Serge Martinez MD Unavailable [phone] Source Comments [facility],non-owned Affiliates and Associated Physician Practices is amultiple site organization consisting of ambulatory clinics and hospital sitesin [place], [place], [place] and [place]. This disclosure is being madepursuant to the Care Everywhere program and may not contain all information available regarding this patient. Last updated 18.[facility] Allergies No known active allergies Medications * [...] 10/27/2018 Active predniSONE (DELTASONE) 20 MG tabletIndications:Ac [place] sinusitis, recurrence not specified, unspecified location Take [...] 03/20/2019 8:59 AM CDT Plan of Treatment Not on file Care Teams Riding Silks Custodian Relationship Specialty Start Date End Date Serge Martinez MD PCP - General 05/24/18 Serge Martinez MD Internal Medicine 05/24/18
--- OUTSIDE RECORDS SUMMARY | 2024-11-01 23:44 | XMS_ITS | Patient Health Summary ---
Author Organization [facility] [employer] Address [address] [place] [address] Care Team Providers Care Bottom Steep Tender Name Role Phone Serge Martinez MD Primary Care Provider [phone] Serge Martinez MD Unavailable Note from [facility],non-owned Affiliates and Associated Physician Practices is amultiple site organization consisting of ambulatory clinics and hospital sitesin [place], [place], [place]. This disclosure is being madepursuant to the Care Everywhere program and may not contain all information available regarding this patient. Last updated 18.[facility] Allergies No known active allergies Medications * Be aware that medications may not be up to date on this document. Alwaysverify current medications with the patient. * FINASTERIDE PO * TAMSULOSIN HCL PO * folic acid (FOLVITE) 1 MG tablet(Started 11/02/2017) * predniSONE (DELTASONE) 2.5 MG tablet(Started 05/16/2018) Take 7.5 mg by mouth * methotrexate 2.5 MG tablet(Started 11/02/2017) Take 20 mg by mouth * leflunomide (ARAVA) 10 MG tablet(Started 05/16/2018) * lisinopril-hydroCHLOROthiazide (PRINZIDE; ZESTORETIC) 20-25 MG tablet(Started 12/05/2017) * albuterol HFA (PROVENTIL;VENTOLIN;PROAIR) 108 (90 BASE) MCG/ACT inhaler (Started 10/27/2018) Inhale 2 puffs by mouth every 4 hours as needed for Shortness of Breath, Wheezing or Cough * benzonatate (TESSALON) 100 MG capsule(Started 10/27/2018) Take 1 capsule by mouth 3 times daily as needed for Cough * predniSONE (DELTASONE) 20 MG tablet(Started 03/20/2019) Take 1 tablet by mouth 2 times daily * albuterol HFA (VENTOLIN HFA) 108 (90 Base) MCG/ACT inhaler(Started 03/20/2019) Inhale 2 puffs by mouth every 6 hours as needed 1 refill remaining Active Problems Problem Noted Date Diagnosed Date [...] Mass Index 27.89 03/20/2019 8:59 AM CDT Procedures * XR CHEST 2VW(Performed 09/10/2019) Performed for Seronegative rheumatoid arthritis of multiple sites (HCC), Persistent disorder of initiating or maintaining wakefulness, Polyuria, Chronic bronchitis, unspecified chronic bronchitis type (HCC) * PULSE OXIMETRY - POINT OF CARE (AMB)(Performed 10/27/2018) Performed for Acute bronchitis, unspecified organism Results * XR CHEST 2VW (09/10/2019 11:27 AM GARMENT PATTERNMAKER) Anatomical Region Laterality Modality Chest Radiographic Bernie ging 09/10/2019 11:4 7 AM GARMENT PATTERNMAKER Impressions 09/10/2019 11:47 AM GARMENT PATTERNMAKER No acute disease. Reading Radiologist: Denys Menchaca MD on 09/10/2019 at 11:47 AM Narrative 09/10/2019 11:47 AM GARMENT PATTERNMAKER Chest Two Views History: Rheumatoid arthritis. COMPARISON: None. FINDINGS: Lungs are clear and costophrenic angles are sharp. No pneumothorax seen. Cardiac silhouette unremarkable. Procedure Note Denys Menchaca MD - 09/10/2019 Chest Two Views History: Rheumatoid arthritis. COMPARISON: None. FINDINGS: Lungs are clear and costophrenic angles are sharp. No pneumothorax seen. Cardiac silhouette unremarkable. IMPRESSION No acute disease. Reading Radiologist: Denys Menchaca MD on 09/10/2019 at 11:47 AM Ranjit Yadav MD DIAGNOSTIC IMAGING O RDERABLES * PULSE OXIMETRY - POINT OF CARE (AMB) (10/27/2018) Oximetry POCT 95 0 - 100 % QC Verified Yes Yes Blood BLOOD SPECIMEN / Unknown 10/27/2018 Mary Osman APRN-FOOD AND BEVERAGE DIRECTOR LAB - POINT OF CARE ORDERABLES Care Teams Bottom Steep Tender Relationship Specialty Start Date End Date Serge Martinez MD PCP - General 05/24/18 Serge Martinez MD Internal Medicine 05/24/18
== END 2024-10-31 10:58 | disposition home or self-care (01) ==
PROVIDERS: PCP Internal Medicine; Visit Provider Urology
DX: N42.9 Disorder of prostate, unspecified (principal); N40.1 Benign prostatic hyperplasia with lower urinary tract symptoms
CPT/HCPCS: 36415; 80053; 84153

== ENCOUNTER 2024-12-17 01:30 | Day surgery (SDC) | payer MEDICARE, SELFPAY ==
[2024-12-05 15:05] VITALS: BMI 31.4
--- NOTE | 2024-12-05 16:04 | PC.NURSE ---
Pt told nurse during interview he was suppose to increase his Eliquis tomorrow to 10mg bid but was unsure why. He states he had seen his drawbench operator 2 days ago. I called Dr. Sudha Tao's office and spoke with Alber Rn, she found no instructions in notes to increase Eliquis and would talk with Dr. Tao and call pt to make sure he did not increase it. They will also instruct us on when he can hold the Eliquis for the colonoscopy.
--- NOTE | 2024-12-11 16:06 | PC.NURSE ---
Spoke with _patient_ regarding medication ELIQUIS. _Patient verbalizes understanding that the last dose is to be taken on 12/14/24 and the Endoscopist will instruct them when to restart after the procedure.
--- OUTSIDE RECORDS SUMMARY | 2024-12-17 01:33 | XMS_ITS | Encounter Summary ---
Author Organization [facility] Address [address] [place] [address] Phone Care Team Providers Care Phlebotomy Director Name Role Phone Serge Martinez MD Primary Care Provider [phone] Janett Mccormick APN, [facility] Unavailable Bernie Downey MD Unavailable Ranjit Yadav MD Unavailable [phone] Reason for Visit * Reason Comments Medication Refill Encounter Details Date Type Department Care Team (Late st Contact Info) Description 10/06/2022 Refill [facility] [address] [place] [id number] Nino Martin MD [address] [address] Medication Refill Social History Tobacco Use Types [...] 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 ROUND LOGGER documented in this encounter Plan of Treatment Not on file documented as of this encounter Visit Diagnoses Not on filedocumented in this encounter Additional Health Concerns Assessment Noted Time PHQ-9 Depression Total Score: 0 11/25/19 21 9:00 AM ALL ROUND LOGGER documented as of this encounter Care Teams Phlebotomy Director Relationship Specialty Start Date End Date Serge Martinez MD [address] [place] [address] PCP - General Internal Medicine 09/12/15 02/14/23 Janett Mccormick, WARRANTY MANAGER, CULTURAL CENTRE MANAGER [address] [place] [id number] Nurse Practitioner Urology 05/14/16 Bernie Downey MD [address] [place] [address] Consulting Physician Urology 10/13/17 Ranjit Yadav MD [address] [place] [address] Consulting Physician Rheumatology 12/06/17 documented as of this encounter
--- OUTSIDE RECORDS SUMMARY | 2024-12-17 01:33 | XMS_ITS | Data Portability ---
Author Organization [facility] [employer], Main Office Address [address] [place] [address] Assessment Encounter Date Assessment Date Assessment LastModified [...] Patient InstructionsNo instructions recorded. Reason for Referral Weblogic Developer/dietitian Refer ral for Failure to lose weight Referring Physician: Billy Tobin Nurse Practitioner- Environmental Health Inspector, Encounter Date: 10/08/2024 Medical Equipment None Reported. [...] SNOMED-CT Code Diagnosis ICD10 Code Diagnosis Note [id number] Billy Tobin NP Main Office [address] [place] [address] 10/08/2024 16:40:20 10/08/2024 23:46:28 Failure to lose weight [id number] R63.8 -pt reports unable to lose wgt-due to nature of TM cannot perform FL or VS-will refer to nutritioni st today-advi [...] Jaime Member ID Guarantor Name 10/08/2024 1 [facility] [id number] Chencho Naranjo [id number] Chencho Naranjo Notes Date Note Type Note [...] TURP -benignKNDA Billy Tobin NP [address] [place], [address], [facility] 10/08/2024 23:14:21
--- OUTSIDE RECORDS SUMMARY | 2024-12-17 01:33 | XMS_ITS ---
Author Organization [facility] mary ellen Address [address] [place] [address] Care Team Providers Care Cork Insulator Helper Name Role Phone Yazan KENNEDY Franko Primary Care Provider Jann KinneyMeghanng Unavailable [phone] Allergies No Known Allergies REASON FOR VISIT 3 month follow up/flc, RA Medications Medication SIG (Take, Route, Frequency, Duration) Notes Start Date End Date Status Losartan Potassium-HCTZ 50-12.5 MG Oral for 30 Days Active sulfaSALAzine 500 MG 1 Orally twice a day for 30 days Active Eliquis - daily oral *Pick strength-form from [employer] for eRX* Active Folic Acid 1 MG TAKE ONE TABLET BY MOUTH DAILY Oral 06/02/2023 Active Wixela Inhub 250-50 MCG/ACT Inhalation for 30 Days Active Finasteride - take 1 tablet daily oral *Pick strength-form from [employer] for eRX* Active Problems Problem Type SNOMED Code ICD Code Onset Dates Problem Status W/U Status Risk Notes Problem History of malignant neoplasm of prostate (494319086) History of prostate cancer (Z85.46) Active confirmed Vital Signs Temperature 97.7 degrees Fahrenheit 08/29/20 24 Blood pressure systolic 126 mm Hg 08/29/20 24 Blood pressure diastolic 80 mm Hg 024 Heart Rate 73 /min 08/29/2024 Height 71 in 08/29/2024 Weight 238 lbs 08/29/2024 BMI 33.19 kg/m2 08/29/2024 Oximetry 94 % 08/29/2024 Height-cm 180.34 cm 08/29/2024 Weight-kg 107.94 kg 08/29/2024 Encounters Encounter Location Date Provider Diagnosis [facility] [address] [place] [address] 08/29/2024 Yana Kinney Rheumatoid arthritis without rheumatoid factor, multiple sites M06.09 ; High risk medication use Z79.899 and History of prostate cancer Z85.46 Assessments Encounter Date Diagnosis (ICD Code) Assessment Notes Treatment Notes Treatment Clinical Notes Section Notes 08/29/2024 Rheumatoid arthritis without rheumatoid factor, multiple sites (ICD-10 - M06.09) off DMARDS, no flares, will monitor, advised to call back if joint pain flares up 08/29/2024 High risk medication use (ICD-10 - Z79.899) off DMARDS, no flares, will monitor, advised to call back if joint pain flares up 08/29/2024 History of prostate cancer (ICD-10 - Z85.46) off DMARDS, no flares, will monitor, advised to call back if joint pain flares up Plan Of Treatment No Information Progress Notes * Chencho BELLDOB: (68 yo M)Acc No.[id number]:08/29/2024 Progress Notes Patient: Chencho MARIN Provider: Monique KINNEY MD :1955 A ge:68 Y S ex:Male Date:08/29/2024 Address:[address] [place] [address] Pcp:Franko Hand MD Subjective: * Chief Complaints: * 3 month follow up/flcRA * HPI: G eneral Follow up: was on SSZ 500mg bid, stopped on his own 3 to 4 weeks ago, no flares, no joint pain today, no joint swelling, am stiffness: a few minutes seronegative, joint pain steroid responsive, did not tolerate MTX or arava hx of prostate cancer sister: RA, leukemia. * ROS: G eneral / Constitutional: Patient denies f pedro, chills. P atient complains of?fatigue. M usculoskeletal: Patient complains of s ee HPI. S kin: Patient denies r jv. * Medical History: * Surgical History: B ack surgery; [id number]; 2020-03-31 * Hospitalization/Major Diagno stic Procedure: * Family History: M igrated Family History: Heart Disease . * Social History: M igrated Social History: M igrated Social History: Exercise :: Active but no formal exercise :: note : none - 04/05/2022 , Marital Status :: , Substance Use :: rare alcohol usage :: note : none - 04/05/2022 , Substance Use :: Tobacco :: Former :: note : quit . * Medications: T akingFinasteride - take 1 tablet daily oral , Notes to Pharmacist: *[facility] for e[facility]*Eliquis - daily oral , Notes to Pharmacist: *[facility]*Losartan Potassium-HCTZ 50-12.5 MG Tablet Oral sulfaSALAzine 500 MG Tablet 1 Orally twice a day Folic Acid 1 MG Tablet TAKE ONE TABLET BY MOUTH DAILY Oral Wixela Inhub 250-50 MCG/ACT Aerosol Powder Breath Activated Inhalation Taking Finasteride - take 1 tablet daily oral , Notes to Pharmacist: *[facility]*Taking Eliquis - daily oral , Notes to Pharmacist: *[facility]*Taking Losartan Potassium-HCTZ 50-12.5 MG Tablet Oral Taking sulfaSALAzine 500 MG Tablet 1 Orally twice a day Taking Folic Acid 1 MG Tablet TAKE ONE TABLET BY MOUTH DAILY Oral Taking Wixela Inhub 250-50 MCG/ACT Aerosol Powder Breath Activated Inhalation * Allergies: N .K.D.A.no[Allergies Verified] Objective: * Vitals: B P:126/80mm Hg, HR:73/min, Temp:97.7F, Oxygen sat %:94%, Wt:238lbs, Wt- k.94kg, Ht:71in, Ht-cm:180.34cm, BMI:33.19Index, Body Surface Area:2.33. * Examination: G eneral Examination: General appearance: a lert, well-nourished and in no acute distress. Head: n ormocephalic, atraumatic. Eyes: n ormal. Skin: n o rash. Lungs: r espiratory effort normal. N eurology: Speech: n ormal. P sychiatry: Affect / mood: a ppropriate. R heumatology: n o synovitis, R knee nontender, slightly puffy. Assessment: * Assessment: 1. R heumatoid arthritis without rheumatoid factor, multiple sites - M06.09 (Primary) ? 2 . H igh risk medication use - Z79.899 3 . H istory of prostate cancer - Z85.46 off DMARDS, no flares, will monitor, advised to call back if joint pain flares up Plan: * Treatment: * Procedure Codes: * Billing Information: * Visit Code: 34789 Office Visit, Est Pt., Level 3. * Procedure Codes: * R FORENSICS ANALYST Sign off status: Completed true * Provider: Monique KINNEY MD Date: 10/29/2023 Generated for Hayder gray/Mike/Peter on: 0 12/17/2024 01:32 AM CDT History and Physical Notes * HPI (History of Present Illness) Category Sub-Category Detail Notes Category Not es General Follow up was on SSZ 500mg bid, stopped on his own 3 to 4 weeks ago, no flares, no joint pain today, no joint swelling, am stiffness: a few minutes seronegative, joint pain steroid responsive, did not tolerate MTX or arava hx of prostate cancer sister: RA, leukemia Examination Category Sub-Category Detail Notes Category Not es Rheumatology no synovitis, R knee nontender, slightly puffy Neurology Speech: normal Psychiatry Affect / mood: appropriate General Examination General appearance: alert, w ell-nourished and in no acute distress Head: normocephalic, atrau matic Eyes: normal Lungs: respiratory effort n ormal Skin: no rash
--- OUTSIDE RECORDS SUMMARY | 2024-12-17 01:33 | XMS_ITS | Clinical Summary ---
Author Organization [facility] Address [address] [place] [address] Care Team Providers Care Laborer Steel Handling Name Role Phone Franko Hand MD Primary Care Provider [phone] Sudha Padilla MD Unavailable Allergies No known active allergies Medications sulfaSALAzine (AZULFIDINE) 500 MG tablet Take 2 tablets (1,000 mg total) by mouth 2 (two) times daily. Active folic acid (FOLVITE) 1 MG tablet Take 1 tablet (1 mg total) by mouth daily. Active finasteride (PROSCAR) 5 MG tablet Take 1 tablet (5 mg total) by mouth daily. Active Fluticasone-Umecl idin-Vilant (TRELEGY ELLIPTA) 100-62.5-25 MCG/ACT AEROSOL POWDER, BREATH ACTIVATED Inhale 1 puff into the lungs daily. Active apixaban (ELIQUIS) 5 MG tablet Take 1 tablet (5 mg total) by mouth 2 (two) times daily. 180 tablet 3 3 Active rosuvastatin (CRESTOR) 5 MG tablet Take 1 tablet (5 mg total) by mouth nightly at bedtime. Active losartan-hydroCHL OROthiazide (HYZAAR) 100-12.5 MG tabletIndications :Essential (primary) hypertension Take 1 tablet by mouth daily. 30 tablet 11 5 Active losartan-hydroCHL OROthiazide (HYZAAR) 50-12.5 MG tablet 4 12/03/19 25 Discontinu ed(Dose adjustment ) Active Problems No known active problems Encounters Date Type Department Care Team Description 12/06/2024 Telephone [facility] [address] [place] [address] Sudha Padilla MD Schedule Test 12/06/2024 Telephone [facility] [address] [place] [address] Sudha Padilla MD Refill Request 12/05/2024 Telephone [facility] [address] [place] [address] Sudha Padilla MD Medication Question 12/03/2024 11:45 AM DIRECTOR OF STRATEGY & MOBILE Office Visit [facility] [address] [place] [address] Sudha Padilla MD Heart Problem 12/03/2024 10:57 AM DIRECTOR OF STRATEGY & MOBILE - 12/03/2024 11:59 PM DIRECTOR OF STRATEGY & MOBILE Hospital Encounter [facility] [address] [place] [address] Sudha Padilla MD Discharge Disposition: Home or Self Care (Routine Discharge) 12/03/2024 Travel 11/30/2024 Telephone [facility] [address] [place] [address] Sudha Padilla MD Appointment Reminder 11/29/2024 Orders Only [facility] [address] [place] [address] Sudha Padilla MD from Last 3 Months Family History Medical History Relation Comments hypertension [...] Information Value Date Recorded Sex Assigned at Male 12/03/2024 10:54 AM DIRECTOR OF STRATEGY & MOBILE Legal Sex Male 10:45 AM CDT Gender Identity Not on file Sexual Orientation Not on file Last Filed Vital Signs Vital Sign Reading Time Taken Comments Blood Pressure 162/70 12/03/2024 1:50 PM DIRECTOR OF STRATEGY & MOBILE Pulse 65 12/03/2024 1:50 PM DIRECTOR OF STRATEGY & MOBILE Temperature - - Respiratory Rate 18 12/03/2024 1:50 PM DIRECTOR OF STRATEGY & MOBILE Oxygen Saturation 95% 11/21/2023 1:54 PM DIRECTOR OF STRATEGY & MOBILE Inhaled Oxygen Concentration - - Weight 105.3 kg (232 lb 3.2 oz) 12/03/2024 1:50 PM DIRECTOR OF STRATEGY & MOBILE Height 180.3 cm (5' 11 ) 12/03/2024 1:50 PM DIRECTOR OF STRATEGY & MOBILE Body Mass Index 32.39 12/03/2024 1:50 PM DIRECTOR OF STRATEGY & MOBILE Plan of Treatment Upcoming Encounters Date Type Department Care Team (Late st Contact Info) Description 12/20/2024 7:[address] [place] [address] Sudha Padilla MD [address] [place] [address] 12/05/2025 8:00 AM DIRECTOR OF STRATEGY & [place] [address] Sudha Padilla MD [address] [place] [address] 12/16/2025 11:15 AM CDT Office Visit [facility] [place] [address] Sudha Padilla MD [address] [place] [address] Health Maintenance Due Date Last Done Comments Colorectal Cancer Screening Colonoscopy (10 Years) 1955 Hepatitis C 1973 RSV Immunization or 60+ Years (1 - Risk 60-74 years 1-dose series) 2015 Pneumococcal Vaccine: 65+ Years (2 of 2 - PCV) 12/06/2018 12/06/2017 Annual Medicare Wellness Visit 2020 COVID-19 Vaccine ( season) 2024 03/17/2021, 02/24/2021 Influenza Adult (#1) 2024 07/05/2021, 07/20/2020, 06/27/2019, Additional history exists DTaP, Tdap and Td Vaccines (3 - Td or Tdap) 08/08/2025 08/08/2015, 12/03/2014 Zoster Vaccines Completed 10/08/2020, 08/04/2020 AAA SCREENING Completed 02/12/2022 Meningococcal B Vaccine Aged Out No l onger eligible based on patient's age to complete this topic Meningococcal Vaccine Aged Out No julieta jacob eligible based on patient's age to complete this topic RSV Immunizations Under 20 Months Aged Out No longer eligible based on patient's age to complete this topic Procedures Procedure Name Priority Date/Time Associated Diagnosis Comments ECG 12-LEAD Routine 12/03/2024 11:20 AM DIRECTOR OF STRATEGY & MOBILE Atrial fibrillation, unspecified type ([facility]) USV AAA SCREENING Routine 02/12/2022 9:4 5 AM CDT Screening for cardiovascular condition from Last 3 Months or Most Recently Relevant to Health Maintenance Results * ECG 12 lead (HOSPITAL PERFORMED ONLY) (12/03/2024 11:20 AM DIRECTOR OF STRATEGY & MOBILE) 12/03/2024 11:2 0 AM DIRECTOR OF STRATEGY & MOBILE Narrative [facility] - 12/03/2024 6:29 PM DIRECTOR OF STRATEGY & MOBILE [address] [place] [address] Test Date: 2024-12-03 Pat Name: CHENCHO BELL Department: 3 Room: Gender: Male Grape Picker: : 1955 Requested By: SUDHA PADILLA Order Number: [id number] Reading MD: Sudha Padilla Measurements Intervals [place] Rate: 66 P: 76 UT: 190 QRS: 83 QRSD: 95 T: 73 QT: 417 QTc: 438 Interpretive Statements SINUS RHYTHM INCOMPLETE RIGHT BUNDLE BRANCH BLOCK [90+ ms QRS DURATION, TERMINAL R IN V1/V2, 40+ ms S IN I/aVL/V4/V5/V6] CTOR OF STRATEGY & MOBILE Procedure Note Sudha Padilla MD - 12/03/2024 [place] [id number] [place] [address] Test Date: 2024-12-03 Pat Name: CHENCHO BELL Department: 3 Room: Gender: Male Grape Picker: : 1955 Requested By: SUDHA PADILLA Order Number: [id number] Reading MD: Sudha Padilla Measurements Intervals [place]mond Rate: 66 P: 76 UT: 190 QRS: 83 QRSD: 95 T: 73 QT: 417 QTc: 438 Interpretive Statements SINUS RHYTHM INCOMPLETE RIGHT BUNDLE BRANCH BLOCK [90+ ms QRS DURATION, TERMINAL R IN V1/V2, 40+ ms S IN I/aVL/V4/V5/V6] CTOR OF STRATEGY & MOBILE us Sudha Padilla MD ECG ORDERABLES Final Result [facility] * USV AAA SCREENING (02/12/2022 9:45 AM [...] 02/12/2022 11:40 AM us Serge Gallego MD [facility] Final Res ult from Last 3 Months or Most Recently Relevant to Health Maintenance [place] [address] Care Teams Laborer Steel Handling Relationship Specialty Start Date End Date Franko Hand MD [address] [place] [id number] PCP - General INTERNAL MEDICINE 04/29/23 Sudha Padilla MD [address] [place] [address] Consulting Physician CARDIOVASCULAR DISEASE 04/29/23
--- OUTSIDE RECORDS SUMMARY | 2024-12-17 01:33 | XMS_ITS | Clinical Summary ---
Author Organization [facility] Address [address] [place] [address] Care Team Providers Care Brick Wheeler Name Role Phone Serge Martinez MD Primary [...] (12/15/2017): Added automatically from request for surgery [id number] Carpal tunnel syndrome, right 12/13/2017 01/17/2018 Immunizations Immunization Administration Dates Next Due Influenza, Quadrivalent, Spl [...] Date Comments Hypertension Rheumatoid arthritis (HCC) Cancer (HCC) Prostate Family History Medical History Relation [...] on file Legal Sex Male 2:44 PM INVENTORY CONTROL SPECIALIST Gender Identity Not on file Sexual Orientation Not on file Obstetrics History Last Filed Vital Signs Vital Sign Reading Time Taken Comments Blood Pressure 142/60 03/26/2021 3:24 PM CDT Pulse 76 03/26/2021 3:24 PM CDT Temperature 36.7 C (98.1 F) 03/26/2021 3:24 PM CDT Respiratory Rate 16 03/26/2021 3:24 PM CDT [...] Fall Risk Assessment 03/22/2022 03/22/2021 Covid-19 Vaccine (4 - 2023-2 5 season) 2024 10/23/2021, 03/17/2021, 02/24/2021 Influenza Vaccine (#1) 2024 , 07/20/2020, 06/27/2019, Additional history exists DTaP/Tdap/Td Vaccine (3 - Td or Tdap) 08/08/2025 08/08/2015, 12/03/2014 Zoster Vaccine Completed 10/08/2020, 08/04/2020 Insurance [facility] CHOICE PLUS MEDICARE MEDICARE [facility] CHOICE PLUS MEDICARE SOLUTIONS [facility] CHOICE PLUS TRANSPLANT [facility] Care Teams Brick Wheeler Relationship Specialty Start Date End Date Serge Martinez MD PCP - General Internal Medicine 12/09/17
--- OUTSIDE RECORDS SUMMARY | 2024-12-17 01:33 | XMS_ITS | Patient Health Summary ---
Author Organization [facility] Address [address] [place] [address] Care Team Providers Care Cylinder Batcher Name Role Phone Serge Martinez MD Primary Care Provider [phone] Serge Martinez MD Unavailable [phone] Note from [facility],non-owned Affiliates and Associated Physician Practices is amultiple site organization consisting of ambulatory clinics and hospital sitesin [place], [place], [place] and [place]. This disclosure is being madepursuant to the Care Everywhere program and may not contain all information available regarding this patient. Last updated 18.[facility] Allergies No known active [...] 85 03/20/2019 8:59 AM CDT Temperature 36.7 C (98.1 F) 03/20/2019 8:59 AM CDT Respiratory Rate 17 03/20/2019 8:59 AM CDT [...] * XR CHEST 2VW (09/10/2019 11:27 AM TRAFFIC CONTROL FLAGGER) Anatomical Region Laterality Modality Chest Radiographic Bernie ging 09/10/2019 11:4 7 AM TRAFFIC CONTROL FLAGGER Impressions 09/10/2019 11:47 AM TRAFFIC CONTROL FLAGGER No acute disease. Reading Radiologist: Denys Menchaca MD on 09/10/2019 at 11:47 AM Narrative 09/10/2019 11:47 AM TRAFFIC CONTROL FLAGGER Chest Two Views History: Rheumatoid arthritis. COMPARISON: [...] BLOOD SPECIMEN / Unknown 10/27/2018 Mary Osman APRN-RECREATION PROGRAM SPECIALIST LAB - POINT OF CARE ORDERABLES Care Teams Cylinder Batcher Relationship Specialty Start Date End Date Serge Martinez MD PCP - General 05/24/18 Serge Martinez MD Internal Medicine 05/24/18
--- OUTSIDE RECORDS SUMMARY | 2024-12-17 01:33 | XMS_ITS | Referral Summary ---
Author Organization [facility] Address [address] [place] [address] Care Team Providers Care Stitcher Standard Machine Name Role Phone Serge Martinez MD Primary Care Provider [phone] Serge Martinez MD Unavailable [phone] Source Comments [facility],non-owned Affiliates and Associated Physician Practices is amultiple site organization consisting of ambulatory clinics and hospital sitesin [place], [place], [place] and [place]. This disclosure is being madepursuant to the Care Everywhere program and may not contain all information available regarding this patient. Last updated 18.[facility] Allergies No known active allergies Medications * [...] 10/27/2018 Active predniSONE (DELTASONE) 20 MG tabletIndications:Ac osage sinusitis, recurrence not specified, unspecified location Take [...] of Treatment Not on file Care Teams Stitcher Standard Machine Relationship Specialty Start Date End Date Serge Martinez MD PCP - General 05/24/18 Serge Martinez MD Internal Medicine 05/24/18
--- OUTSIDE RECORDS SUMMARY | 2024-12-17 01:33 | XMS_ITS | Clinical Summary ---
Author Organization [facility] Address [address] [place] [address] Phone Care Team Providers Care Sharepoint Manager Name Role Phone Unavailable Primary Care Provider [...] - - Pulse - - Temperature 36.7 C (98 F) 07/14/2021 9:16 AM CDT Respiratory Rate 17 [...] 60-74 years 1-dose series) 2015 PNEUMOCOCCAL VACCINE 50+ YEA RS (2 of 2 - PCV) 12/06/2018 12/06/2017 INFLUENZA VACCINE (#1) 2024 , 07/20/2020, 07/20/2020, Additional history exists COVID-19 Vaccine (2 - 2023-2 5 season) 2024 02/24/2021 DTAP/TDAP/TD VACCINES (3 - T d or Tdap) 08/08/2025 08/08/2015, 12/03/2014 ZOSTER VACCINE Completed 10/08/2020, 08/04/2020 Insurance MEDICARE PART A AND B [facility]
--- OUTSIDE RECORDS SUMMARY | 2024-12-17 01:33 | XMS_ITS | Clinical Summary ---
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 Not on file Not on file No t on file Last Filed Vital Signs Vital Sign Reading Time Taken Comments Blood Pressure 110/70 12/15/2021 10:53 AM FIRE MANAGEMENT OFFICER Pulse 62 12/15/2021 10:53 AM FIRE MANAGEMENT OFFICER Temperature 36.7 C (98 F) 12/15/2021 10:53 AM FIRE MANAGEMENT OFFICER Respiratory Rate 18 12/15/2021 10:53 AM FIRE MANAGEMENT OFFICER Oxygen Saturation 97% 12/15/2021 10:53 AM FIRE MANAGEMENT OFFICER Inhaled Oxygen Concentration - - Weight 91.2 kg (201 lb) 12/15/2021 10:53 AM FIRE MANAGEMENT OFFICER Height 180.3 cm (5' 11 ) 12/15/2021 10:53 AM FIRE MANAGEMENT OFFICER Body Mass Index 28.03 12/15/2021 10:53 AM FIRE MANAGEMENT OFFICER Plan of Treatment Health Maintenance Due Date [...] Combined Discontinued 12/06/2017 Zoster Immunization Completed 10/08/2020, PSA Discussion Discontinued 07/22/2021, 04/10, 04/06/2021, Additional [...] Relevant to Health Maintenance [facility] Care Teams Tile Picker Relationship Specialty Start Date End Date Janett Mccormick, MORGAN, ENERGY PROFESSIONAL Nurse Practitioner Urology 05/14/16 Bernie Downey MD Consulting Physician Urology 10/13/17 Ranjit Yadav MD [address] [address] Consulting Physician Rheumatology 12/06/17
--- OUTSIDE RECORDS SUMMARY | 2024-12-17 01:33 | XMS_ITS | Clinical Summary ---
Author Organization [facility] Address [address] [place] [address] Care Team Providers Care Building Supplies Salesperson Retail Name Role Phone Serge Martinez MD Primary Care Provider [phone] Serge Martinez MD Unavailable [phone] Source Comments [facility],non-owned Affiliates and Associated Physician Practices is amultiple site organization consisting of ambulatory clinics and hospital sitesin [place], [place] and [place]. This disclosure is being madepursuant to the Care Everywhere program and may not contain all information available regarding this patient. Last updated 18.[facility] Allergies No known active allergies Medications * [...] 10/27/2018 Active predniSONE (DELTASONE) 20 MG tabletIndications:Ac [place] sinusitis, recurrence not specified, unspecified location Take [...] SCREENING 1955 LIPID TESTING 1955 MEDICARE AWV 12 MONTHS 1955 HEPATITIS C SCREENING 10/30/1973 DTAP/TDAP/TD VACCINES (1 - Tdap) 1974 PNEUMOCOCCAL VACCINE 50+ (1 of 1 - PCV) 2005 ZOSTER VACCINE (1 of 2) 2005 SCREENING FOR DIABETES 10/27/2018 AAA SCREENING 2020 COVID-19 VACCINE (1 - 2023-2 5 season) 2024 INFLUENZA VACCINE (#1) 2024 9, 07/13/2017 DEPRESSION SCREENING 10/10/2024 Respiratory Syncytial Virus [...] age to complete this topic Care Teams Building Supplies Salesperson Retail Relationship Specialty Start Date End Date Serge Martinez MD PCP - General 05/24/18 Serge Martinez MD Internal Medicine 05/24/18
--- OUTSIDE RECORDS SUMMARY | 2024-12-17 01:33 | XMS_ITS | Referral Summary ---
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
--- OUTSIDE RECORDS SUMMARY | 2024-12-17 01:33 | XMS_ITS ---
Author Organization [facility] mary ellen Address [address] [place] [address] Care Team Providers Care Mixing Operator Name Role Phone Yazan KENNEDY Franko Primary Care Provider Yana Plata Unavailable [phone] REASON FOR VISIT Refills Medications Medication SIG (Take, Route, Fr equency, Duration) Notes Start Date End Date Status sulfaSALAzine 500 MG 1 Orally twice a da y for 30 days 12/12/2024 Active Encounters Encounter Location Date Provider Diagnosis [facility] [address] [place] [address] 09/13/2024 Yana Malave Rheumatoid arthritis without rheumatoid factor, multiple sites M06.09 Assessments Encounter Date Diagnosis (ICD Code) Assessment Notes Treatment Notes Treatment Clinical Notes Section Notes 09/13/2024 Rheumatoid arthritis without rheumatoid factor, multiple sites (ICD-10 - M06.09) Plan Of Treatment Medication Medication Name Sig Start Date Stop Date Notes sulfaSALAzine 500 MG 1 Orally twice a day for 30 days 12/12/2024 Progress Notes * Chencho BELLDOB: (68 yo M)Acc No.[id number]:09/13/2024 Patient: Chencho MARIN :1955 A ge:68 Y S ex:Male Address:[address] [place] [address], [place], [address] * Refills Refill sulfaSALAzine Tablet, 500 MG, Orally, 60, 1, twice a day, 30 days, Refills=2 * true * Date: Generated for Printi ng/Faxing/eTransmitting on: 0 12/17/2024 01:33 AM CDT
--- OUTSIDE RECORDS SUMMARY | 2024-12-17 01:33 | XMS_ITS | Patient Health Record ---
Author Organization [facility] mary ellen Address [address] [facility] [address] [place] [address] Care Team Providers Care Shelter Monitor Name Role Phone Yazan KENNEDY, [facility] Primary Care Provider Jann MalaveYana Unavailable [phone] Allergies No Known Allergies Results Component Value Reference Range Notes CMP(COMPREHENSIVE METABOLIC PANEL) Reviewed date:05/31/2024 08:40:23 AM Interpretation:Lab Result Generalized Performing Lab:[facility], [address] [place], [address] Notes/Report: Sodium 140 133-146 mmol/L Potassium 4.1 3.5-5.1 mmol/L Chloride 103 98-107 mmol/L Carbon Dioxide 30 21-31 mmol/L Anion Gap 7 4-13 mmol/L Blood Urea Nitrogen 11 7-25 mg/dL Creatinine 1.00 0.60-1.30 mg/dL eGFRcr (CKD-EPI 2020) 82 >=60 mL/min/1.73 m2 Calcium 9.6 8.3-10.5 mg/dL Glucose 94 70-100 mg/dL Protein, Total 7.0 6.4-8.3 g/dL Albumin 4.2 3.5-5.0 g/dL ALT 13 11-51 units/L Alkaline Phosphatase 69 34-104 units/L AST 17 13-39 units/L Bilirubin, Total 0.8 0.2-1.2 mg/dL CBC W/DIFF Reviewed date:05/31/2024 08:40:22 AM Interpretation:Lab Result Generalized Performing Lab:[facility], [address] [place], [address] Notes/Report: WBC 7.9 3.5-10.5 10'3/uL RBC 4.73 (Based on docume nted legal sex) 4.30-5.80 10'6/uL HGB 13.9 (Based on docume nted legal sex) 13.0-17.5 g/dL HCT 42.6 (Based on docume nted legal sex) 38.0-50.0 % MCV 90.1 80.0-99.0 fL MCH 29.4 27.0-34.0 pg MCHC 32.6 32.0-35.5 g/dL RDW 13.2 11.0-15.0 % PLT 289 150-400 10'3/uL MPV 9.7 8.8-12.1 fL NRBC's 0.0 0.0 % Absolute NRBCs 0.0 No reference ran ge established 10'3/uL Neutrophils 69.7 34.0-73.0 % Lymphocytes 19.3 15.0-50.0 % Monocytes 7.6 1.0-15.0 % Eosinophils 2.0 0.0-8.0 % Basophils 0.5 0.0-2.0 % Immature Granulocytes 0.9 No defined reference range % Absolute Neutrophils 5.5 1.5-8.0 10'3/uL Absolute Lymphocytes 1.5 1.0-4.0 10'3/uL Absolute Monocytes 0.6 0.2-1.0 10'3/uL Absolute Eosinophils 0.2 0.0-0.6 10'3/uL Absolute Basophils 0.0 0.0-0.3 10'3/uL Absolute Immature Granulocytes 0.1 0.00-0.10 10'3/uL 05/31/2024 7:29 AM: P indicates partial results on a panel have been released. Additional results will follow. 05/31/2024 7:29 AM: This result has been final verified. No additional or changed results are expected. Reason For Referral No Information Medications Medication SIG (Take, Route, Frequency, Duration) Notes Start Date End Date Status Losartan Potassium-HCTZ 50-12.5 MG Oral for 30 Days Active Finasteride - take 1 tablet daily oral *Pick strength-form from [employer] for eRX* Active Eliquis - daily oral *Pick strength-form from [employer] for eRX* Active Folic Acid 1 MG TAKE ONE TABLET BY MOUTH DAILY Oral 06/02/2023 Active Wixela Inhub 250-50 MCG/ACT Inhalation for 30 Days Active Problems Problem Type SNOMED Code ICD Code Onset Dates Problem Status W/U Status Risk Notes Problem 924045040 Rheumatoid arthritis without rheumatoid factor, multiple sites (M06.09) Active confirmed Problem History of malignant neoplasm of prostate (210628913) History of prostate cancer (Z85.46) Active confirmed Vital Signs Heart Rate 73 /min 08/29/2024 Temperature 97.7 degrees Fahrenheit 08/29/2024 Height-cm 180.34 cm 08/29/2024 Blood pressure diastolic 80 mm Hg 08/29/2024 Oximetry 94 % 08/29/2024 Weight-kg 107.94 kg 08/29/2024 Height 71 in 08/29/2024 Blood pressure systolic 126 mm Hg 08/29/2024 Weight 238 lbs 08/29/2024 BMI 33.19 kg/m2 08/29/2024 Encounters Encounter Location Date Provider Diagnosis [facility] [address] [place] [address] 02/09/2024 Yana Ananda Rheumatoid arthritis without rheumatoid factor, multiple sites M06.09 ; High risk medication use Z79.899 and History of prostate cancer Z85.46 [facility] [address] [place] [address] 05/30/2024 Yana Ananda Rheumatoid arthritis without rheumatoid factor, multiple sites M06.09 ; High risk medication use Z79.899 and History of prostate cancer Z85.46 [facility] [address] [place] [address] 08/29/2024 Yana Ananda Rheumatoid arthritis without rheumatoid factor, multiple sites M06.09 ; High risk medication use Z79.899 and History of prostate cancer Z85.46 [facility] [address] [place] [address] 05/07/2024 Yana Du [facility] [address] [place] [address] 09/12/2024 Yana Du [facility] [address] [place] [address] 09/13/2024 Yana Du Rheumatoid arthritis without rheumatoid factor, multiple sites M06.09 Assessments Encounter Date Diagnosis (ICD Code) Assessment Notes Treatment Notes Treatment Clinical Notes Section Notes 02/09/2024 Rheumatoid arthritis without rheumatoid factor, multiple sites (ICD-10 - M06.09) clinically stable, continue SSZ, labs today, return in 3 months 05/30/2024 Rheumatoid arthritis without rheumatoid factor, multiple sites (ICD-10 - M06.09) clinically stable, continue SSZ, labs today, return in 3 months 08/29/2024 Rheumatoid arthritis without rheumatoid factor, multiple sites (ICD-10 - M06.09) off DMARDS, no flares, will monitor, advised to call back if joint pain flares up 09/13/2024 Rheumatoid arthritis without rheumatoid factor, multiple sites (ICD-10 - M06.09) 08/29/2024 High risk medication use (ICD-10 - Z79.899) off DMARDS, no flares, will monitor, advised to call back if joint pain flares up 05/30/2024 High risk medication use (ICD-10 - Z79.899) clinically stable, continue SSZ, labs today, return in 3 months 02/09/2024 High risk medication use (ICD-10 - Z79.899) clinically stable, continue SSZ, labs today, return in 3 months 02/09/2024 History of prostate cancer (ICD-10 - Z85.46) clinically stable, continue SSZ, labs today, return in 3 months 05/30/2024 History of prostate cancer (ICD-10 - Z85.46) clinically stable, continue SSZ, labs today, return in 3 months 08/29/2024 History of prostate cancer (ICD-10 - Z85.46) off DMARDS, no flares, will monitor, advised to call back if joint pain flares up Plan Of Treatment Pending Test Test Name Order Date CBC With Differential/Platelet 4 CBC With Differential/Platelet 4 Chem-Comprehensive 02/09/2024 Chem-Comprehensive 11/03/2023 Insurance Providers Payer Name Payer Address Payer Phone Subscriber Number Group Number Insured Name Patient Relationship to Insured Coverage Start Date Coverage End Date [facility] Medicare Advantage [employer] [address] [address] [place] [address] [phone] [id number] Checnho Naranjo Self - patient is the insured Medical (General) History Medical History History ICD Code Hypertension; prostate cancer; Rheumatoid arthritis; Surgical History Surgery Date(Month/Year) Back surgery; 2020-03-31 Tonsillectomy; 2020-03-31
--- OUTSIDE RECORDS SUMMARY | 2024-12-17 01:33 | XMS_ITS ---
Author Organization [facility] mary ellen Address [address] [place] [address] Care Team Providers Care Director Environmental Name Role Phone Yazan KENNEDY [facility] Primary Care Provider Yana Plata [phone] Encounters Encounter Location Date Provider Diagnosis [facility] [address] [place] [address] 09/12/2024 Yana Malave Plan Of Treatment No Information Progress Notes * Chencho BELLDOB: (68 yo M)Acc No.[id number]:09/12/2024 Patient: Chencho MARIN :1955 A ge:68 Y S ex:Male Address:[address] [facility] [place], [place], [address] * true * Date: Generated for Printi marina/Israelg/eTransmitting on: 0 12/17/2024 01:33 AM CDT
[2024-12-17 09:02] VITALS: BP 140/76; PULSE 72; RESP 18; TEMP 35.9; O2SAT 94; BMI 31.6
[2024-12-17] MEDS: LACTATED RINGERS 1,000 ML 150 ML IV CONT (09:23)
--- NOTE | 2024-12-17 10:10 | PM.IMHP ---
H&P: HPI History of Present Illness Date/Time: 12/17/24 10:10 Chief Complaint: screening for colorectal cancer Narrative: this is a 69-year-old man who presents for colonoscopy. He denies any hematochezia or melena. He denies family history of colon cancer. Review of Systems Review of Systems: All systems reviewed & are unremarkable except as noted in HPI and below Constitutional: Constitutional: Denies chills, Denies fever(s), Denies headache(s) and Denies weight loss Eyes: Eyes: Denies change in vision ENT: Denies dizziness, Denies headache(s), Denies neck mass and Denies throat swelling Cardiovascular: Cardiovascular: Denies chest pain, Denies lightheadedness and Denies dyspnea Respiratory: Respiratory: Denies cough, Denies dyspnea and Denies wheezing Gastrointestinal: Gastrointestinal: Denies abdominal pain, Denies change in bowel habits, Denies nausea and Denies vomiting Genitourinary: Genitourinary: Denies hematuria and Denies dysuria Musculoskeletal: Musculoskeletal: Reports as per HPI Integumentary/Breasts: Skin/Breast: Reports as per HPI Neurologic: Denies dizziness and Denies headache(s) Allergic/Immunologic: Allergic/Immunologic: Denies throat swelling and Denies wheezing PMFSH Past Medical History Medical History Afib Chronic anticoagulation Rectus diastasis Umbilical hernia Surgical History Surgical History History of back surgery History of carpal tunnel surgery of right wrist History of tonsillectomy Hx of adenoidectomy Hx of elbow surgery bilateral Family History Family History Father Hypertension Heart disease Thyroid disorder Mother Hypertension Heart disease Social History Social History Smoking packs per day: 1.5 Smoking cigarettes per day: 30.0 Smoking status: Former smoker Tobacco type: cigarettes Alcohol intake: never Alcohol use details: 1 per yr Substance use: current Substance use type: marijuana Other substance usage details: gummies Current Housing: Decline to Answer Concerned About Future Housing: Decline to Answer Difficulty Paying Gas/Electric Bills: Decline to Answer Difficulty Paying for Meds: Decline to Answer Currently Unemployed: Decline to Answer Education: Decline to Answer Difficulty w/ Childcare or Family Care: Decline to Answer Living arrangements: with family Spiritual care concerns: No Meds Home Medications and Allergies Home Medications ?Medication ?Instructions ?Recorded ?Confirmed ?Type apixaban 5 mg tablet (Eliquis) 5 mg PO DAILY 08/10/24 12/17/24 History finasteride 5 mg tablet 5 mg PO DAILY 08/10/24 12/17/24 History rosuvastatin 5 mg tablet 5 mg PO DAILY 08/10/24 12/17/24 History verapamil 180 mg 24 hr 180 mg PO DAILY 08/10/24 12/17/24 History capsule,extended release albuterol sulfate 90 mcg/actuation 1 - 2 inh inhalation Q4-6H PRN 08/30/24 12/05/24 Rx aerosol inhaler shortness of breath or wheezing #8.5 grams fluticasone fur. 100 mcg-umeclid 1 inh inhalation DAILY 12/05/24 12/17/24 History 62.5 mcg-vilant 25 mcg inhalat.powder (Trelegy Ellipta) sulfasalazine 500 mg tablet 0.5 g PO TID PRN RA pain 12/05/24 12/05/24 History losartan 100 1 tablet PO DAILY 12/17/24 12/17/24 History mg-hydrochlorothiazide 12.5 mg tablet Allergies Allergy/AdvReac Type Severity Reaction Status Date / Time No Known Allergies Allergy Verified 12/17/24 09:11 Vital Signs Vital Signs - 24 hr 12/17/24 09:02 Temperature 96.7 F L Pulse Rate 72 Respiratory Rate 18 Blood Pressure 140/76 Pulse Oximetry 94 Oxygen Delivery Room Air Exam Const: General: no acute distress and alert Orientation/consciousness: patient oriented x3 HENMT: Head: normocephalic and atraumatic Ears: hearing grossly normal bilaterally Face/Nose/Sinus: Normal nares present Mouth: Yes Normal oral and palatal mucosa present Eyes: Periorbital: periorbital findings normal Sclera: sclerae normal EOM: EOMs intact bilaterally Neck: Neck: normal visual inspection, no lymphadenopathy and trachea midline Chest: Chest palpation & inspection: normal inspection of the chest Resp: Effort & Inspection: normal respiratory effort Auscultation: clear to auscultation bilaterally Cardio: Jugular venous distension: no JVD Rate: regular rate Rhythm: regular rhythm Heart sounds: S1 normal heart sound present and S2 normal heart sound present Peripheral pulses: Peripheral pulses 2+ throughout GI: Inspection: normal to inspection GI Palp: Yes Soft to palpation, No Tenderness to palpation present (GI), No Guarding due to palpation present (GI) and No Rebound tenderness present Percussion: Yes normal to percussion Auscultation: normal bowel sounds : General: Yes no CVA tenderness Back/Spine/Pelvis: Back: no CVA tenderness Neuro: General: patient oriented x3, no focal motor deficits and CN's II-XI intact bilaterally Cognition (Neuro): normal cognition Speech: normal speech Motor exam (neuro): 5/5 motor strength present throughout Extrem: General: capillary refill normal and no clubbing, cyanosis or edema Assessment and Plan Assessment and plan (1) Screening for colorectal cancer: Code(s): Z12.11 - Encounter for screening for malignant neoplasm of colon; Z12.12 - Encounter for screening for malignant neoplasm of rectum Status: Acute Assessment and Plan: I have recommended colonoscopy. I have discussed the procedure, risks, benefits, and alternatives. Questions were answered. Patient is agreeable to proceed.
--- NOTE | 2024-12-17 10:13 | P.PNAN_ITS ---
Anes - Initial Pre Proc Eval Procedure: Operation Date: 12/17/24 10:00 Proposed Procedures p Screening Colonoscopy - Chad Montes DO Date/Time: 12/17/24 10:13 Surgeon: Chad Montes DO Pre Op Diagnosis: Screening for malignant neoplasm of colon Patient Data Age: 69 Gender: M Height: 1.8 m Weight: 103.1 kg Last Vital Signs Temp 35.9 C L 12/17/24 09:02 Pulse 72 12/17/24 09:02 Resp 18 12/17/24 09:02 BP 140/76 12/17/24 09:02 Pulse Ox 94 12/17/24 09:02 O2 Del Method Room Air 12/17/24 09:02 Allergies Allergy/AdvReac Type Severity Reaction Status Date / Time No Known Allergies Allergy Verified 12/17/24 09:11 Home Medications ?Medication ?Instructions ?Recorded ?Confirmed ?Type apixaban 5 mg tablet (Eliquis) 5 mg PO DAILY 08/10/24 12/17/24 History finasteride 5 mg tablet 5 mg PO DAILY 08/10/24 12/17/24 History rosuvastatin 5 mg tablet 5 mg PO DAILY 08/10/24 12/17/24 History verapamil 180 mg 24 hr 180 mg PO DAILY 08/10/24 12/17/24 History capsule,extended release albuterol sulfate 90 mcg/actuation 1 - 2 inh inhalation Q4-6H PRN 08/30/24 12/05/24 Rx aerosol inhaler shortness of breath or wheezing #8.5 grams fluticasone fur. 100 mcg-umeclid 1 inh inhalation DAILY 12/05/24 12/17/24 History 62.5 mcg-vilant 25 mcg inhalat.powder (Trelegy Ellipta) sulfasalazine 500 mg tablet 0.5 g PO TID PRN RA pain 12/05/24 12/05/24 History losartan 100 1 tablet PO DAILY 12/17/24 12/17/24 History mg-hydrochlorothiazide 12.5 mg tablet Patient hx anesthesia problems: none Family hx anesthesia problems: post op nausea/vomiting Results Review: All pre-operative results and documents have been reviewed as part of the pre- operative evaluation. [facility] Past Medical History Medical History Chronic anticoagulation Afib Rectus diastasis Umbilical hernia Surgical History Surgical History History of back surgery Hx of adenoidectomy History of tonsillectomy History of carpal tunnel surgery of right wrist Hx of elbow surgery bilateral Family History Family History Father Hypertension Heart disease Thyroid disorder Mother Hypertension Heart disease Social History Social History Smoking packs per day: 1.5 Smoking cigarettes per day: 30.0 Smoking status: Former smoker Tobacco type: cigarettes Alcohol intake: never Alcohol use details: 1 per yr Substance use: current Substance use type: marijuana Other substance usage details: gummies Current Housing: Decline to Answer Concerned About Future Housing: Decline to Answer Difficulty Paying Gas/Electric Bills: Decline to Answer Difficulty Paying for Meds: Decline to Answer Currently Unemployed: Decline to Answer Education: Decline to Answer Difficulty w/ Childcare or Family Care: Decline to Answer Living arrangements: with family Spiritual care concerns: No Anes - Eval Final PreProcedure Day of Procedure 12/17/24 10:13 Patient weight: obese Heart: irregular rhythm Lungs: decreased breath sounds Airway: Mallampati scale class II Neurological: alert and oriented Last oral intake: >/= 8 hours ASA classification: III Emergent: no Anesthetic plan: proceed Anesthesia type and monitoring: general GIVS and standard monitoring Results Review: All pre-operative results and documents have been reviewed as part of the pre- operative evaluation. Informed Consent: The patient's anesthetic plan and its attendant risks and benefits were discussed with the patient/family/POA. Questions were solicited and answers provided to the satisfaction of the patient/family/POA.
[2024-12-17 10:35] VITALS: BP 120/64; PULSE 60; RESP 18; O2SAT 98
[2024-12-17 10:45] VITALS: BP 107/66; PULSE 68; RESP 18; O2SAT 97
[2024-12-17 10:55] VITALS: BP 118/65; PULSE 58; RESP 18; O2SAT 97
== END 2024-12-17 11:07 | disposition home or self-care (01) ==
PROVIDERS: PCP Internal Medicine; Visit Provider Surgery
PROC: 0DJD8ZZ Inspection of Lower Intestinal Tract, Via Natural or Artificial Opening Endoscopic (ICD-10-PCS; CPT 45378; principal; 2024-12-17 10:00)
DX: Z12.11 Encounter for screening for malignant neoplasm of colon (principal); D12.2 Benign neoplasm of ascending colon; D12.3 Benign neoplasm of transverse colon; K57.30 Diverticulosis of large intestine without perforation or abscess without bleeding; Z87.891 Personal history of nicotine dependence; F12.90 Cannabis use, unspecified, uncomplicated; E66.9 Obesity, unspecified; Z68.31 Body mass index [BMI] 31.0-31.9, adult
CPT/HCPCS: 45385; 88305; J2704; J7120

== ENCOUNTER 2025-05-06 14:01 | Outpatient (CLI) | payer MEDICARE, SELFPAY ==
--- NOTE | ~2025-05-06 | XR_ITS ---
XR knee LT min 4V 05/06/2025 14:43 Indication: Left knee pain Procedure: 5 views left knee Comparison: No prior studies for comparison. Findings: No fracture, subluxation or dislocation. No significant joint effusion. No foreign bodies. Impression: 1: No acute bone or joint abnormality. Reviewed, dictated and finalized at location A. Impression: 1: No acute bone or joint abnormality.
--- OUTSIDE RECORDS SUMMARY | 2025-05-06 14:06 | XMS_ITS | Clinical Summary ---
Author Organization [facility]ylan [facility] Address [address] [place] [address] Phone Care Team Providers Care Paper Winder Name Role Phone Unavailable Primary Care Provider [...] (2 of 2 - PCV) 12/06/2018 12/06/2017 COVID-19 Vaccine (2 - 2023-2 5 season) 2024 02/24/2021 INFLUENZA VACCINE (#1) 2025 1, 07/20/2020, 07/20/2020, Additional history exists DTAP/TDAP/TD VACCINES (3 - T d or Tdap) 08/08/2025 08/08/2015, 12/03/2014 ZOSTER VACCINE Completed 10/08/2020, 08/04/2020 Insurance MEDICARE PART A AND B [facility]
--- OUTSIDE RECORDS SUMMARY | 2025-05-06 14:06 | XMS_ITS | Patient Health Record ---
Author Organization [facility] mary ellen Address [address] [facility] [place] [address] Care Team Providers Care Building Dismantler Name Role Phone Yazan KENNEDY, [facility] Primary Care Provider Jann MalaveYana Unavailable [phone] Allergies No Known Allergies Results Component Value Reference Range Notes CMP(COMPREHENSIVE METABOLIC PANEL) Reviewed date:05/31/2024 08:40:23 AM Interpretation:Lab Result Generalized Performing Lab:[facility], [address] [place], [address] Notes/Report: Sodium 140 133-146 mmol/L Potassium 4.1 [...] Interpretation:Lab Result Generalized Performing Lab:[facility], [address] [place], [address] Notes/Report: WBC 7.9 3.5-10.5 10'3/uL RBC 4.73 [...] End Date Status Losartan Potassium-HCTZ 50-12.5 MG Oral; Duration: 30 Days Active Finasteride - take 1 tablet daily oral *Pick strength-form from [employer] for eRX* Active Eliquis - daily oral *Pick strength-form from [employer] for eRX* Active Folic Acid 1 MG TAKE ONE TABLET BY MOUTH DAILY Oral 06/02/2023 Active Wixela Inhub 250-50 MCG/ACT Inhalation; Duration: 30 Days Active Problems Problem Type SNOMED Code ICD Code Onset Dates Problem Status W/U Status Risk Notes Problem Rheumatoid arthritis (71130996) Rheumatoid arthritis without rheumatoid factor, multiple sites (M06.09) Active confirmed Problem History of malignant neoplasm of prostate (361964035) History of prostate cancer (Z85.46) Active confirmed Vital Signs Heart Rate 73 /min 08/29/2024 Temperature 97.7 degrees Fahrenheit 08/29/2024 Height-cm 180.34 cm 08/29/2024 Blood pressure diastolic 80 mm Hg 08/29/2024 Oximetry 94 % 08/29/2024 Weight-kg 107.94 kg 08/29/2024 Height 71 in 08/29/2024 Blood pressure systolic 126 mm Hg 08/29/2024 Weight 238 lbs 08/29/2024 BMI 33.19 kg/m2 08/29/2024 Encounters Encounter Location Date Provider Diagnosis [facility] [address] [place] [address] 05/30/2024 Yana Malave Rheumatoid arthritis without rheumatoid factor, multiple sites M06.09 ; High risk medication use Z79.899 and History of prostate cancer Z85.46 [facility] [address] [place] [address] 08/29/2024 Yana Malave Rheumatoid arthritis without rheumatoid factor, multiple sites M06.09 ; High risk medication use Z79.899 and History of prostate cancer Z85.46 [facility] [address] [place] [address] [facility] [address] [place] [address] 09/12/2024 Yana [facility] [address] [place] [address] 09/13/2024 Yana Malave Rheumatoid arthritis without rheumatoid factor, multiple sites M06.09 Assessments Encounter Date Diagnosis (ICD Code) Assessment Notes Treatment Notes Treatment Clinical Notes Section Notes 05/30/2024 Rheumatoid arthritis without rheumatoid factor, multiple [...] Insured Coverage Start Date Coverage End Date [facility] Medicare Advantage [facility] [address] [address] [place] [address] [id number] Chencho Naranjo Self - patient is the insured Medical (General) History Medical History History ICD Code Hypertension; prostate cancer; Rheumatoid arthritis; Surgical History Surgery Date(Month/Year) Back surgery; 2020-03-31 Tonsillectomy; 2020-03-31
--- OUTSIDE RECORDS SUMMARY | 2025-05-06 14:07 | XMS_ITS | Referral Summary ---
Author Organization [facility] Address [address] [place] [address] Care Team Providers Care Digital Coordinator Name Role Phone Serge Martinez MD Primary [...] (12/15/2017): Added automatically from request for surgery [id number] Carpal tunnel syndrome, right 12/13/2017 01/17/2018 Immunizations [...] on file Legal Sex Male 2:44 PM [employer] Gender Identity Not on file Sexual Orientation [...] 8:03 AM CDT Height 180.3 cm (5' 11) 03/26/2021 8:03 AM CDT Body Mass Index 26.57 03/26/2021 8:03 AM CDT Plan of Treatment Not on file Insurance [facility] CHOICE PLUS MEDICARE MEDICARE [facility] CHOICE PLUS [facility] MEDICARE ADVANTAGE [facility] CHOICE PLUS [employer] [facility] Care Teams Digital Coordinator Relationship Specialty Start Date End Date Serge Martinez MD PCP - General Internal Medicine 12/09/17
--- OUTSIDE RECORDS SUMMARY | 2025-05-06 14:07 | XMS_ITS | Clinical Summary ---
Author Organization [facility] Address [address] [place] [address] Care Team Providers Care Electrical Timing Device Calibrator Name Role Phone Franko Hand MD Primary Care Provider [phone] Sudha Tao MD Unavailable Allergies No known [...] mouth daily. 30 tablet 11 5 Active Active Problems No known active problems [...] Sex Assigned at Male 12/03/2024 10:54 AM TOPOLOGY PROFESSOR Legal Sex Male 10:45 AM CDT Gender Identity Not on file Sexual Orientation Not on file Last Filed Vital Signs Vital Sign Reading Time Taken Comments Blood Pressure 162/70 12/03/2024 1:50 PM TOPOLOGY PROFESSOR Pulse 65 12/03/2024 1:50 PM TOPOLOGY PROFESSOR Temperature - - Respiratory Rate 18 12/03/2024 1:50 PM TOPOLOGY PROFESSOR Oxygen Saturation 95% 11/21/2023 1:54 PM TOPOLOGY PROFESSOR Inhaled Oxygen Concentration - - Weight 105.3 kg (232 lb 3.2 oz) 12/03/2024 1:50 PM TOPOLOGY PROFESSOR Height 180.3 cm (5' 11) 12/03/2024 1:50 PM TOPOLOGY PROFESSOR Body Mass Index 32.39 12/03/2024 1:50 PM TOPOLOGY PROFESSOR Plan of Treatment Upcoming Encounters Date Type Department Care Team (Late st Contact Info) Description 12/05/2025 8:00 AM TOPOLOGY PROFESSOR [address]oint[address] [facility] [address] [place] [address] Sudha Tao MD [address] [place] [address] 12/16/2025 11:15 AM CDT Office Visit [facility] [address] [place] [address] Sudha Tao MD [address] [place] [address] Health Maintenance Due Date Last Done Comments Colorectal Cancer Screening Colonoscopy (10 Years) 1955 Hepatitis C 1973 RSV Immunization or 60+ Years (1 - Risk 60-74 years 1-dose series) 2015 Pneumococcal Vaccine: 50+ Years (2 of 2 - PCV) 12/06/2018 12/06/2017 Annual Medicare Wellness Visit 2020 COVID-19 Vaccine (3 - 2023-2 5 season) 2024 03/17/2021, 02/24/2021 DTaP, Tdap and Td Vaccines ( 3 - Td or Tdap) 08/08/2025 08/08/2015, 12/03/2014 Zoster Vaccines Completed 10/08/2020, 08/04/2020 AAA SCREENING Completed 12/20/2024, 02/12/2022 Meningococcal B Vaccine Aged Out No l onger eligible based on patient's age to complete this topic Meningococcal Vaccine Aged Out No julieta jacob eligible based on patient's age to complete this topic RSV Immunizations Under 20 Months Aged Out No longer eligible b ased on patient's age to complete this topic Procedures Procedure Name Priority Date/Time Associated Diagnosis Comments USV AAA SCREENING Routine 12/20/2024 7:1 3 AM CDT Former heavy tobacco smoker from Last 3 Months or Most Recently Relevant to Health Maintenance Results * USV AAA SCREENING (12/20/2024 7:13 AM CDT) Anatomical Region Laterality Modality NA Ultrasound 12/20/2024 6:55 AM CDT Narrative 12/23/2024 9:02 PM CDT Outreach Aortic Scan Pat.Name: Chencho Naranjo Pat.ID: [id number] .Date: 12/20/2024 Refer.MD: Jose, [facility] Exam Time: 6:55:00 AM Study Type:OUTREACH Aortic Scan Height: 71 in Age: 1 1955,69Y Sex: M Sonogrphr: Sf Pat. Stat.:Outpatient Reason for Study:Former heavy tobacco smoker Procedures: Study performed at [place], [place] and interpreted by [facility]. ++++++++++++++++++++++++++++++++++++ SUMMARY: ++++++++++++++++++++++++++++++++++++ AO: No evidence of abdominal aortic aneurysm. AO: No hemodynamically significant stenosis is noted in the abdominal aorta. Bilat: Patent bilateral iliac arteries noted. Bilat: No evidence of iliac artery aneurysm or ectasia noted bilaterally. ++++++++++++++++++++++++++++++++++++ FINDINGS: ++++++++++++++++++++++++++++++++++++ AO: No evidence of abdominal aortic aneurysm. No hemodynamically significant stenosis is noted in the abdominal aorta. Bilat: Patent bilateral iliac arteries noted. No evidence of iliac artery aneurysm or ectasia noted bilaterally. ++++++++++++++++++++++++++++++++++++ MEASUREMENTS: ++++++++++++++++++++++++++++++++++++ DOPPLER Supra AO Supra AO PSV 59 cm/s Supra AO Dim 2 2.5 cm Supra AO Dim 1 2.5 cm Juxta AO Juxta AO PSV 64 cm/s Juxta AO Dim 2 2 cm Juxta AO Dim 1 1.9 cm Infra AO Infra AO PSV 63 cm/s Infra AO Dim 2 2 cm Infra AO Dim 1 1.8 cm Rt Prox Common Iliac Common Iliac PS 88 cm/s Common Iliac Di 1.2 cm Common Iliac Di 1 cm Lt Prox Common Iliac Common Iliac PS 110 cm/s Common Iliac Di 1 cm Common Iliac Di 1 cm <Electronic Signature> 12/23/2024 09:02 PM Sudha Tao M.D. Procedure Note Sudha Tao MD - 12/23/2024 Outreach Aortic Scan Pat.Name: Chencho Naranjo Pat.ID: [id number] .Date: 12/20/2024 Refer.MD: Jose, [facility] Exam Time: 6:55:00 AM Study Type:OUTREACH Aortic Scan Height: 71 in Age: 1 1955,69Y Sex: M Sonogrphr: Sf Pat. Stat.:Outpatient Reason for Study:Former heavy tobacco smoker Procedures: Study performed at [facility], [place], [place] and interpreted by [facility]. ++++++++++++++++++++++++++++++++++++ SUMMARY: ++++++++++++++++++++++++++++++++++++ AO: No evidence of abdominal aortic aneurysm. AO: No hemodynamically significant stenosis is noted in the abdominal aorta. Bilat: Patent bilateral iliac arteries noted. Bilat: No evidence of iliac artery aneurysm or ectasia noted bilaterally. ++++++++++++++++++++++++++++++++++++ FINDINGS: ++++++++++++++++++++++++++++++++++++ AO: No evidence of abdominal aortic aneurysm. No hemodynamically significant stenosis is noted in the abdominal aorta. Bilat: Patent bilateral iliac arteries noted. No evidence of iliac artery aneurysm or ectasia noted bilaterally. ++++++++++++++++++++++++++++++++++++ MEASUREMENTS: ++++++++++++++++++++++++++++++++++++ DOPPLER Supra AO Supra AO PSV 59 cm/s Supra AO Dim 2 2.5 cm Supra AO Dim 1 2.5 cm Juxta AO Juxta AO PSV 64 cm/s Juxta AO Dim 2 2 cm Juxta AO Dim 1 1.9 cm Infra AO Infra AO PSV 63 cm/s Infra AO Dim 2 2 cm Infra AO Dim 1 1.8 cm Rt Prox Common Iliac Common Iliac PS 88 cm/s Common Iliac Di 1.2 cm Common Iliac Di 1 cm Lt Prox Common Iliac Common Iliac PS 110 cm/s Common Iliac Di 1 cm Common Iliac Di 1 cm <Electronic Signature> 12/23/2024 09:02 PM Sudha Tao M.D. Sudha Tao MD [facility] Final Result from Last 3 Months or Most Recently Relevant to Health Maintenance Insurance [facility] [place] [address] Care Teams Electrical Timing Device Calibrator Relationship Specialty Start Date End Date Franko Hand MD [address] [place] [address] PCP - General INTERNAL MEDICINE 04/29/23 Sudha Tao MD [address] [place] [address] Consulting Physician CARDIOVASCULAR DISEASE 04/29/23
--- OUTSIDE RECORDS SUMMARY | 2025-05-06 14:07 | XMS_ITS | Clinical Summary ---
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 on file Not on file No t on file Last Filed Vital Signs Vital Sign Reading Time Taken Comments Blood Pressure 110/70 12/15/2021 10:53 AM OPTOMETRIC TECH Pulse 62 12/15/2021 10:53 AM OPTOMETRIC TECH Temperature 36.7 C (98 F) 12/15/2021 10:53 AM OPTOMETRIC TECH Respiratory Rate 18 12/15/2021 10:53 AM OPTOMETRIC TECH Oxygen Saturation 97% 12/15/2021 10:53 AM OPTOMETRIC TECH Inhaled Oxygen Concentration - - Weight 91.2 kg (201 lb) 12/15/2021 10:53 AM OPTOMETRIC TECH Height 180.3 cm (5' 11) 12/15/2021 10:53 AM OPTOMETRIC TECH Body Mass Index 28.03 12/15/2021 10:53 AM OPTOMETRIC TECH Plan of Treatment Health Maintenance Due Date Last Done Comments Hepatitis C Virus (HCV) Screening 1955 Cologuard 2000 Immunochemical Fecal Occult Blood 2000 Respiratory Syncytial Virus (RSV) Immunization (Adult) (1 - Risk 60-74 years 1-dose series) 2015 Pneumococcal Immunization (50+ years) (2 of 2 - PCV) 12/06/2018 12/06/2017 Colonoscopy 01/16/2024 01/15/2019, 10/24/2015 Colorectal Cancer Screening 01/16/2024 SARS-COV-2 Immunization ( season) 2024 10/23/2021, 03/17/2021, 02/24/2021 Influenza Immunization (#1) 06/10/202506/11, 07/20/2020, 06/27/2019, Additional history exists Td Immunization Every 10 Years (Adults With 1 Tdap) 08/08/2025 08/08/2015, 12/03/2014 Pneumococcal Immunization Combined Discontinued 12/06/2017 Zoster Immunization Completed 10/08/2020, PSA Discussion Discontinued 07/22/2021, 04/10, 04/06/2021, Additional history exists Lung Cancer Screening Discontinued 12/22/2021 Hepatitis B Immunization Aged Out No longer eligible based on patient's age to complete this topic Human Papillomavirus (HPV) Immunization Aged Out No longer eligible based [...] Relevant to Health Maintenance [facility] Care Teams Lens Cementer Relationship Specialty Start Date End Date Janett Mccormick, MORGAN, SPEECH ASSISTANT Nurse Practitioner Urology 05/14/16 Bernie Downey MD Consulting Physician Urology 10/13/17 Ranjit Yadav MD [address] [address] Consulting Physician Rheumatology 12/06/17
--- OUTSIDE RECORDS SUMMARY | 2025-05-06 14:07 | XMS_ITS | Clinical Summary ---
Author Organization [facility] Address [address] [place] [address] Care Team Providers Care Seaming Inspector Name Role Phone Serge Martinez MD Primary Care Provider [phone] Serge Martinez MD Unavailable [phone] Source Comments [facility],non-owned Affiliates and Associated Physician Practices is amultiple site organization consisting of ambulatory clinics and hospital sitesin [place], [place], [place] and [place]. This disclosure is being madepursuant to the Care Everywhere program and may not contain all information available regarding this patient. Last updated 18.[facility] Allergies No known active allergies Medications * Be aware that medications may not be up to date on this document. Alwaysverify current medications with the patient. FINASTERIDE PO Activ e TAMSULOSIN HCL PO Active folic acid (FOLVITE) 1 MG tablet 8 Active predniSONE (DELTASONE) 2.5 MG tablet Take 7.5 mg by mouth 8 Active methotrexate 2.5 MG tablet Take 20 mg by mouth 8 Active leflunomide (ARAVA) 10 MG tablet 8 Active lisinopril-hydro CHLOROthiazide (PRINZIDE; ZESTORETIC) 20-25 MG tablet 8 Active albuterol HFA (PROVENTIL;JEAN DA;PROAIR) 108 (90 BASE) MCG/ACT inhalerIndicatio ns:Acute bronchitis, unspecified organism Inhale 2 puffs by mouth every 4 hours as needed for Shortness of Breath, Wheezing or Cough 1 Inhaler 9 Active benzonatate (TESSALON) 100 MG capsuleIndicatio ns:Acute bronchitis, unspecified organism Take 1 capsule by mouth 3 times daily as needed for Cough 15 capsule 9 Active predniSONE (DELTASONE) 20 MG tabletIndication s:Acute sinusitis, recurrence not specified, unspecified location Take 1 tablet by mouth 2 times daily 14 tablet 9 Active albuterol HFA (VENTOLIN HFA) 108 (90 Base) MCG/ACT inhalerIndicatio ns:Acute bronchitis, unspecified organism Inhale 2 puffs by mouth every 6 hours as needed 1 Inhaler 1 9 Active Active Problems Problem Noted Date Diagnosed [...] at Not on file 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 Gender Identity Not on file Sexual Orientation [...] 8:59 AM CDT Height 180.3 cm (5' 11) 03/20/2019 8:59 AM CDT Body Mass Index 27.89 03/20/2019 8:59 AM CDT Plan of Treatment Health Maintenance Due Date Last Done Comments COLOGUARD (AGES 45-75) - COLON CA SCREENING 1955 COLON MONITORING 1955 COLONOSCOPY - COLON CA SCREENING 1955 CT COLONOGRAPHY - COLON CA SCREENING 1955 Colorectal Cancer Screening 1955 FIT - COLON CA SCREENING 1955 FLEX SIG - COLON CA SCREENING 1955 MEDICARE AWV 12 MONTHS 1955 HEPATITIS C SCREENING 10/30/1973 DTAP/TDAP/TD VACCINES (1 - Tdap) 1974 PNEUMOCOCCAL VACCINE 50+ (1 of 1 - PCV) 2005 ZOSTER VACCINE (1 of 2) 2005 AAA SCREENING 2020 SCREENING FOR DIABETES 07/09/2022 9, 06/12/2019, 06/12/2019, Additional history exists COVID-19 VACCINE ( season) 2024 LIPID TESTING 06/12/2024 06/12/2019, 06/08/2018 DEPRESSION SCREENING 10/10/2024 INFLUENZA VACCINE (#1) 2025 06/27/2019, 2016 Respiratory Syncytial Virus (RSV) Vaccine Pt: or [...] complete this topic MENINGOCOCCAL (Group B) VACCINE SHARED DECISION-MAKING Aged Out No longer eligible based on patient's age to complete this topic MENINGOCOCCAL GROUPS A/C/Y/W VACCINE Aged Out No longer eligible based on patient's age to complete this topic Insurance [facility] MEDICARE PH[employer] [facility] UHC MANAGED MEDICARE ADV SELF PAY NO INSURANCE Member Subscriber Plan / Payer (Ef fective for All Dates) Name:Chencho Bell Member ID:Not on file Relation to Subscriber:Not on file Name:CHENCHO BELL Subscriber ID:Not on file (Home) Address: [address] [place] [id number] Payer ID:Not on file Group ID:Not on file Type:Self Pay Address: [place], [place] Care Teams Seaming Inspector Relationship Specialty Start Date End Date Serge Martinez MD PCP - General 05/24/18 Serge Martinez MD Internal Medicine 05/24/18
--- OUTSIDE RECORDS SUMMARY | 2025-05-06 14:07 | XMS_ITS | Encounter Summary ---
Author Organization [facility] Address [address] [place] [address] Phone Care Team Providers Care Surgical Garment Assembler Name Role Phone Serge Martinez MD Primary Care Provider [phone] Janett Mccormick APN, [facility] Unavailable Bernie Downey MD Unavailable [phone] Ranjit Yadav MD Unavailable [phone] Reason for Visit * Reason Comments Medication Refill Encounter Details Date Type Department Care Team (Late st Contact Info) Description 10/06/2022 Refill [facility] [address] [place] [id number] Nino Martin MD [address] [address] Medication Refill Social History Tobacco Use Types [...] 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 RHANGER PIPE documented in this encounter Plan of Treatment Not on file documented as of this encounter Visit Diagnoses Not on filedocumented in this encounter Additional Health Concerns Assessment Noted Time PHQ-9 Depression Total Score: 0 11/25/19 21 9:00 AM PAPERHANGER PIPE documented as of this encounter Care Teams Surgical Garment Assembler Relationship Specialty Start Date End Date Serge Martinez MD [address] [address] PCP - General Internal Medicine 09/12/15 02/14/23 Janett Mccormick, WASHER CARCASS, RN ONCOLOGY CLINICAL [address] [place] [address] Nurse Practitioner Urology 05/14/16 Bernie Downey MD [address] [place] [address] Consulting Physician Urology 10/13/17 Ranjit Yadav MD [address] [place] [address] Consulting Physician Rheumatology 12/06/17 documented as of this encounter
--- OUTSIDE RECORDS SUMMARY | 2025-05-06 14:07 | XMS_ITS | Clinical Summary ---
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 Gender Identity Not on file Sexual Orientation [...] 2024 10/23/2021, 03/17/2021, 02/24/2021 Influenza Vaccine (#1) 2025 , 07/20/2020, 06/27/2019, Additional history exists DTaP/Tdap/Td Vaccine (3 - Td or Tdap) 08/08/2025 08/08/2015, 12/03/2014 Zoster Vaccine Completed 10/08/2020, 08/04/2020 Insurance [facility]PPO Address: [facility] [address] [place] [address] MEDICARE MEDICARE [facility] HMO/PPO Address: [address] [address] [place] [address] [facility] MEDICARE ADVANTAGE [facility] MEDICARE Address: [address] [address] [place] [address] [facility] HMO/PPO Address: [address] [address] [place] [address] [employer] Care Teams Stock Controller Relationship Specialty Start Date End Date Serge Martinez MD PCP - General Internal Medicine 12/09/17
--- OUTSIDE RECORDS SUMMARY | 2025-05-06 14:07 | XMS_ITS | Encounter Summary ---
Author Organization [facility] Address [address] [place] [address] Care Team Providers Care Foam Molder Name Role Phone Franko Hand MD Primary Care Provider Sudha Tao MD Unavailable Encounter Details Date Type Department Care Team (Late st Contact Info) Description 12/24/2024 Anevia Message [facility] [address] [place] [phone] [facility] Provider Results Social History Tobacco Use Types Packs/Day Years Used Date Smoking Tobacco: Former Cigarettes Alcohol Use Standard Drinks/Week Comments Not Currently 0 (1 standard drink = 0.6 oz pur e alcohol) Sex and Gender Information Value Date Recorded Sex Assigned at Male 12/03/2024 10:54 AM CHINA DECORATOR Legal Sex Male 10:45 AM CDT Gender Identity Not on file Sexual Orientation Not on file documented as of this encounter Plan of Treatment Upcoming Encounters Date Type Department Care Team (Late Contact Info) Description 12/05/2025 8:00 [address] [facility] [address] [place] [address] Sudha Tao MD [address] [place] [id number] 12/16/2025 11:15 AM CDT [facility] [address] [place] [phone] Sudha Tao MD [address] [place] [address] documented as of this encounter Visit Diagnoses Not on filedocumented in this encounter Care Teams Foam Molder Relationship Specialty Start Date End Date Franko Hand MD [address] [place] [address] PCP - General INTERNAL MEDICINE 04/29/23 Sudha Tao MD [address] [place] [address] Consulting Physician CARDIOVASCULAR DISEASE 04/29/23 documented as of this encounter
--- OUTSIDE RECORDS SUMMARY | 2025-05-06 14:07 | XMS_ITS | Data Portability ---
Author Organization [facility], Main Office Address [address] [place] [address] Assessment Encounter Date Assessment Date Assessment LastModified [...] an referral 2023 024 [email or web address] Not available 4 23:46:28 Procedures None recorded. Surgeries None recorded. Imaging None recorded. Medication Orders None recorded. Patient TargetsNo targets recorded. Patient InstructionsNo instructions recorded. Reason for Referral Machine Bookkeeper/dietitian Refer ral for Failure to lose weight Referring Physician: Billy Tobin, Family Medicine, Encounter Date: 10/08/2024 Medical Equipment None Reported. [...] SNOMED-CT Code Diagnosis ICD10 Code Diagnosis Note [id number] Billy Tobin NP Main Office [address] [place] [address] 10/08/2024 16:40:20 10/08/2024 23:46:28 Failure to lose weight [id number] R63.8 -pt reports unable to lose wgt-due to nature of TM cannot perform NC or VS-will refer to nutritioni st today-advi sed healthy diet and exercise-a dvised to RTC for further management Health Concerns Section Related Observation LastModified by Organization Detai ls LastModified Time None Recorded Concern Status LastModified by Organization Details LastModified Time None Recorded Advance Directives Directive None Recorded Payers Insurance Date Sequence Insurance Name Policy Number Policy Jaime Covered Member ID Jaime Member ID Guarantor Name 10/17/2024 1 [facility] [id number] Chencho Naranjo [id number] Chencho Naranjo
== END 2025-05-06 14:02 | disposition home or self-care (01) ==
LOC: CHSIMG 14:03
PROVIDERS: PCP Internal Medicine; Visit Provider Internal Medicine
DX: M25.562 Pain in left knee (principal)
CPT/HCPCS: 73564

== ENCOUNTER 2025-05-16 10:44 | Outpatient (RCR) | payer MEDICARE, SELFPAY ==
--- NOTE | 2025-05-16 10:59 | OPREHPOC ---
Outpatient Therapy Plan of Care This is a Multidisciplinary Plan of Care that may contain components documented by all disciplines (PT, OT, and ST.) PT Problem 1 PT Problem #1 Knowledge Deficit PT Goal 1 Goal / Goal Update Independent and compliant with HEP. Target Visit 2 PT Problem 2 PT Problem #2 Pain PT Goal 1 Goal / Goal Update Pt to report no worse than 2/10 knee pain in the last week. Target Visit 4 PT Problem 3 PT Problem #3 Impaired Functional Mobility PT Goal 1 Goal / Goal Update Pt to report 10% or less perceived disability on LEFS. Target Visit 4
--- NOTE | 2025-05-16 10:59 | PTOPEVAL1 ---
Assessment and note entered by Mindy Westfall, PT Evaluation Information Assessment Status Evaluation ICD-10 Condition Codes (PT) Pain in left knee M25.562 Onset 04/09/2025 Subjective Information Pt reports onset of L knee pain in April 2025 without mechanism of injury. He currently denies because his doctor put him on prednisone 3 days ago and has 4 days left, however he reports having some pain yesterday. He reports that when he does feel pain it's right above his kneecap and that it feels tender when he would bend the knee, almost like if he knelt on something and bruised his knee. Denies NTB or pain down the leg. He reports he doesn't do much physical activity besides cutting grass. When his knee was bothering him the most he would note increased pain with climbing stairs and getting out of chairs. Reported Pain Level Pain Score 0: Self Report Assessment PT Clinical Summary Mr. Naranjo is a 69 yo male presenting to skilled PT evaluation for L knee pain. He has been prescribed prednisone by his MD and denies pain at rest. Pt also demonstrates sufficient LE strength and L knee AROM without pain. However slight knee pain in the suprapatellar region is reproduced with descending stairs and squatting, indicating possible suprapatellar bursitis. He will benefit from skilled PT intervention to reduce pain and inflammation in the knee to improve ability to perform functional tasks. Plan of Care Interventions Electrical Stimulation,Gait Training,Hot Pack/Cold Pack,Manual Therapy,Neuro Re-education,Patient/ Caregiver Education,Therapeutic Activities, Therapeutic Exercise,Self-Care/Home Management PT Services Indicated Yes Treatment Frequency and 1x/week for 4 visits Duration These treatments will address the objective and functional deficits as defined above. The patient will be advanced safely and appropriately in order for the patient to progress towards his/her prior level of function. Additional exercises will be introduced and as well as a comprehensive home exercise program upon discharge, if needed, ?to ensure carryover of functional gains achieved in the clinic. This treatment plan has been reviewed and agreement upon by the patient.
--- NOTE | 2025-06-05 06:59 | PTOPDC ---
Assessment and note entered by Mindy Westfall, PT Evaluation Information Assessment Status Discharge - Pt Not Present ICD-10 Condition Codes (PT) Pain in left knee M25.562 Onset 04/09/2025 Subjective Information See below. Assessment PT Clinical Summary Pt contacted the clinic stating that his knee is feeling much better and he would like to be discharged. Plan of Care PT Services Indicated No
== END 2025-05-29 20:00 | disposition home or self-care (01) ==
LOC: CHSPT 10:44
PROVIDERS: PCP Internal Medicine; Visit Provider Internal Medicine
DX: M25.562 Pain in left knee (principal)
CPT/HCPCS: 97014; 97112; 97140; 97161; 97530; G0283

== ENCOUNTER 2025-07-19 11:59 | Outpatient (CLI) | payer MEDICARE, SELFPAY ==
[2025-07-19 12:16] LABS: Hematocrit 44.2 % (37.0-46.0); Hemoglobin 14.7 g/dL (12.4-15.3); Mean Corpuscular HGB Conc 33.3 g/dL (32-36); Mean Corpuscular Hemoglobin 29.5 pg (27.0-31.0); Mean Corpuscular Volume 88.8 fL (78.0-102.0); Platelet Count Result 240 K/mm3 (150-420); Red Blood Count 4.98 M/mm3 (4.70-6.10); White Blood Count 8.5 K/mm3 (4.8-10.8)
[2025-07-19 13:11] LABS: Alanine Aminotransferase 21 U/L (6-50); Albumin Level 4.4 g/dL (3.5-5.1); Alkaline Phosphatase 77 U/L (38-126); Anion Gap 8 mmol/L (4-12); Aspartate Amino Transferase 28 U/L (17-59); Bilirubin,Total 0.7 mg/dL (0.2-1.3); Blood Urea Nitrogen 12 mg/dL (9-20); CRP 0.7 mg/dL (<1.0); Calcium 9.8 mg/dL (8.4-10.2); Carbon Dioxide 29 mmol/L (22-30); Chloride 105 mmol/L (98-107); Estimated Glomerular Filt Rate > 60; Glucose 93 mg/dL (65-110); Osmolality Calculated 293 mOsm/kg (285-295); Potassium 4.5 mmol/L (3.4-5.0); Sodium 142 mmol/L (137-145); Total Protein 7.9 g/dL (6.3-8.2)
== END 2025-07-19 12:00 | disposition home or self-care (01) ==
LOC: CHSLAB 12:00
PROVIDERS: PCP Internal Medicine; Visit Provider Internal Medicine
DX: I10 Essential (primary) hypertension (principal); M06.9 Rheumatoid arthritis, unspecified
CPT/HCPCS: 36415; 80053; 85027; 86140